=== PATIENT | male | born 1990 | race Two or more races ===

== ENCOUNTER 2024-04-10 09:57 | Inpatient (IN) | payer BC, OTHER ==
[~2024-04-10] VITALS: Ht 167.6 cm; Wt 80.2 kg
[2024-04-10] MEDS: ACETAMINOPHEN 500 MG TAB PO ONE (10:12)
[2024-04-10 10:49] VITALS: PULSE 131; RESP 21; O2SAT 94
--- NOTE | 2024-04-10 11:04 | ED.PDOC ---
GI ASSESSMENT HPI Comments 34y M who presents to the ED for chief complaint of abdominal pain. Pt states he has been having abdominal pain, nausea, vomiting, fever, chills and body aches for the past 4 days. Pt states he went to urgent care this AM and states he after pt vitals were checked, pt had fever of 103.1 F and was referred to the ED for further evaluation. Pt now in ED, has temp of 103.1 F and heart rate in the 140's. Pt otherwise denies shortness of breath,chest pain, headache, dizziness, dysuria, hematuria, or hematemesis. Pt denies any recent sick contacts. Pt denies any past medical history and use of any medications to help ease her symptoms. Pt otherwise denies any other symptoms at this time. Chief Complaint: Abdominal Pain Time Seen by MD: 11:00 Reviewed Notes: Allergies Allergies: Coded Allergies: NO KNOWN ALLERGIES (Unverified , 04/10/24) Information Source: Patient Mode of Arrival: Wheelchair Brought in by: self Past Medical History PAST MEDICAL HISTORY: Denies Surgical History: Denies all surgeries Family History Family History: Unknown Social History Smoker: Non-Smoker Alcohol: Occasionally Drugs: Denies Drug Use Lives In: Home Constitutional: reports: chills, fever; denies: diaphoresis, fatigue, malaise, sweats, weakness, others EENTM: denies: blurred vision, double vision, ear bleeding, ear discharge, ear drainage, ear pain, ear ringing, eye pain, eye redness, hearing loss, mouth pain, mouth swelling, nasal discharge, nose bleeding, nose congestion, nose pain, photophobia, tearing, throat pain, throat swelling, voice changes, others Respiratory: denies: cough, hemoptysis, orthopnea, SOB at rest, shortness of breath, SOB with excertion, stridor, wheezing, others Cardiovascular: denies: chest pain, dizzy spells, diaphoresis, Dyspnea on exertion, edema, irregular heart beat, left arm pain, lightheadedness, palpitations, PND, syncope, others Gastrointestinal: reports: abdominal pain, diarrhea, nausea, vomiting; denies: abdomen distended, blood streaked bowels, constipated, dysphagia, difficulty swallowing, hematemesis, melena, poor appetite, poor fluid intake, rectal bleeding, rectal pain, others Genitourinary: denies: burning, dysuria, flank pain, frequency, hematuria, incontinence, penile discharge, penile sore, pain, testicle pain, testicle swelling, urgency, others Neurological: denies: dizziness, fainting, headache, left sided numbness, left sided weakness, numbness, paresthesia, pre-existing deficit, right sided numbness, right sided weakness, seizure, speech problems, tingling, tremors, weakness, others Musculoskeletal: denies: back pain, gout, joint pain, joint swelling, muscle pain, muscle stiffness, neck pain, others Integumetry: denies: bruises, change in color, change in hair/nails, dryness, laceration, lesions, lumps, rash, wounds, others Allergic/Immunocompromised: denies: Difficulty Healing, Frequent Infections, Hives, Itching, others Hematologic/Lymphatic: denies: anemia, blood clots, easy bleeding, easy bruising, swollen glands, others Endocrine: denies: excessive hunger, excessive sweating, excessive thirst, excessive urination, flushing, intolerance to cold, intolerance to heat, unexplained weight gain, unexplained weight loss, others Psychiatric: denies: anxiety, bipolar disorder, depression, hopeless, panic disorder, schizophrenia, sleepless, suicidal, others All Other Systems: Reviewed and Negative Physical Exam General Appearance: Moderate Distress HEENT: Normal ENT Inspection, PERRL/EOMI, Pharyngeal Erythema Neck: Full Range of Motion, Lymphadenopathy (R), Lymphadenopathy (L), Non- Tender, Normal, Normal Inspection Respiratory: Chest Non-Tender, Lungs Clear, No Accessory Muscle Use, No Respiratory Distress, Normal Breath Sounds Cardiovascular: No Edema, No JVD, No Murmur, No Gallop, Normal Peripheral Pulses, Regular Rate/Rhythm Breast Exam: Normal Gastrointestinal: Epigastric, No Organomegaly, No Pulsatile Mass, Normal Bowel Sounds, Tenderness Genitalia: Deferred Pelvic: Deferred Rectal: Deferred Extremities: No calf tenderness, Normal capillary refill, Normal inspection, Normal range of motion, Non-tender, No pedal edema Neurologic: Alert, staff genetic counselor II-XII nml as Tested, No Motor Deficits, Normal Affect, Normal Mood, No Sensory Deficits Cerebellar Function: Normal Reflexes: Normal Skin: Dry, Normal Color, Warm Peripheral Pulses: 1+ carotid (R), 1+ carotid (L) Lymphatic: Inguinal Node Tender (L) EKG EKG : Pulse Rate (adult): 121 [place]: RAD Cardiac Rhythm: ST, PVC's Was a procedure done? Was a procedure done?: No GI differential Dx Differential Diagnosis: Cholecystitis, Diverticular disease, Gastritis/PUD, Gastroenteritis, Inflammatory BD, Ischemic Bowel, Pancreatitis, UTI, Dehydration, Diabetes/ DKA, Drug toxicity, Electrolyte Imbalance, Food Poisoning, Bacterial, Viral, Anemia, Stress Ulcer Other Differential Diagnosis sepsis, viral syndrome, influenza A and B, pneumonia, COVID X-Ray, Labs, Meds, VS Vital Signs Date Time Temp Pulse Resp B/P (MAP) Pulse Ox O2 Delivery O2 Flow Rate FiO2 04/10/24 13:00 99.6 114 23 114/78 (90) 97 99.6 04/10/24 11:41 121 04/10/24 11:25 121 04/10/24 11:12 101.9 04/10/24 10:49 101.9 131 21 104/58 (73) 93 101.9 04/10/24 10:49 131 21 94 Room Air* 0 21 04/10/24 10:12 103.1 04/10/24 10:07 103.1 141 16 114/70 (85) 100 Lab Test 04/10/24 12:38 04/10/24 11:24 04/10/24 11:03 Range/Units Urine Color Yellow Yellow Urine Clarity Clear Clear Urine pH 5.5 5.0-9.0 Urine Specific [place] 1.022 1.001-1.035 Urine Protein 1+ H Negative Urine Ketones Negative Negative Urine Blood Trace H Negative /uL Urine Nitrite Negative Negative Urine Bilirubin Negative Negative Urine Urobilinogen Normal Negative mg/dL Urine Leukocyte Esterase Negative Negative /uL Urine RBC 2 0 - 3 /hpf Urine WBC 9 0 - 3 /hpf Urine Squamous Epithelial Cells None seen <5 /hpf Urine Bacteria None seen None Seen /hpf Urine Hyaline Casts Few 0 - 2 /lpf Urine Glucose Normal Normal mg/dL Influenza Type A Antigen Negative Negative Influenza Type B Antigen Negative Negative SARS-CoV-2 Antigen (Rapid) Negative NEGATIVE Group A Streptococcus Rapid Positive White Blood Count 20.7 H 4.4-10.8 10^3/uL Red Blood Count 5.33 4.5-5.90 10^6/uL Hemoglobin 15.6 13.5-17.5 g/dL Hematocrit 43.6 41.0-53.0 % Mean Corpuscular Volume 81.9 80.0-100.0 fL Mean Corpuscular Hemoglobin 29.3 28.0-32.0 pg Mean Corpuscular Hemoglobin Concent 35.8 32.0-36.0 g/dL Red Cell Distribution Width 13.0 11.8-14.3 % Platelet Count 242 140-450 10^3/uL Mean Platelet Volume 7.7 6.9-10.8 fL Neutrophils (%) (Auto) 37.0-80.0 % Lymphocytes (%) (Auto) 10.0-50.0 % Monocytes (%) (Auto) 0.0-12.0 % Basophils (%) (Auto) 0.0-2.0 % Neutrophils # (Auto) 1.6-8.6 10 ^3/uL Lymphocytes # (Auto) 0.4-5.4 10 ^3/uL Monocytes # (Auto) 0-1.3 10 ^3/uL Differential Total Cells Counted 100.0 100 Neutrophils % (Manual) 72 37.0-80.0 Band Neutrophils % (Manual) 9 Lymphocytes % (Manual) 9 L 10.0-50.0 Monocytes % (Manual) 8 0-12 Eosinophils % (Manual) 2 0-7 Basophils % (Manual) 0 0.0-2.0 Metamyelocytes % (manual) 0 Myelocytes % (Manual) 0 Promyelocytes % (Manual) 0 Blast Cells % (Manual) 0 Reactive Lymphocytes 0 Platelet Estimate Adequate Sodium Level 133 L 136-145 mmol/L Potassium Level 2.9 L 3.5-5.1 mmol/L Chloride Level 103 98-107 mmol/L Carbon Dioxide Level 20 20-31 mmol/L Anion Gap 10 5-15 Blood Urea Nitrogen 12 9-23 mg/dL Creatinine 1.63 H 0.700-1.30 mg/dL Glomerular Filtration Rate Calc 56 >90 mL/min BUN/Creatinine Ratio 7.4 L 10.0-20.0 Serum Glucose 143 H 74-106 mg/dL Calcium Level 9.0 8.7-10.4 mg/dL Magnesium Level 1.5 L 1.6-2.6 mg/dL Total Bilirubin 2.5 H 0.2-1.0 mg/dL Aspartate Amino Transferase (AST) 146 H 13-40 U/L Alanine Aminotransferase (ALT) 216 H 7-40 U/L Alkaline Phosphatase 111 46-116 U/L Total Protein 7.5 5.7-8.2 g/dL Albumin 4.5 3.2-4.8 g/dL Lipase 28 12-53 U/L Current Medications Medications (Trade) Dose Ordered Sig/Jese Route Start Time Stop Time Status Last Admin Acetaminophen (Tylenol Tablet) 1,000 mg ONCE ONCE PO 04/10/24 10:15 04/10/24 10:16 DC 04/10/24 10:12 Sodium Chloride 1,000 ml @ 1,000 mls/hr Q1H ONCE IVB 04/10/24 11:00 04/10/24 11:59 DC 04/10/24 11:51 Ceftriaxone Sodium 50 ml @ 100 mls/hr ONCE ONCE IV 04/10/24 15:15 04/10/24 15:44 DC 04/10/24 15:47 Potassium Bicarbonate (Klor-Con/Ef) 50 meq ONCE ONCE PO 04/10/24 15:30 04/10/24 15:31 DC 04/10/24 15:54 [place] [id number] Ph: [phone] DIAGNOSTIC IMAGING Diagnostic Imaging Report : [id number] Signed PATIENT: BIB CHANACCT: [id number] UNIT: [id number] : 1990 LOC: ER ROOM / BED: / AGE / SEX: 34 / M ADM STATUS: REG ER SERVICE 1048 ORDERING PHYSICIAN: BELÉN UMANA MD PROCEDURE(s): CXR2 - CHEST TWO VIEWS ROUTINE REASON: High fever ORDER NUMBER(s): [id number], ACCESSION NUMBER(s): [id number] CHEST TWO VIEWS ROUTINE CLINICAL HISTORY: High fever COMPARISON: None TECHNIQUE: Frontal and lateral view of the chest was obtained FINDINGS: Lines and Tubes: None Lungs: No focal consolidation. Bronchovascular crowding due to low lung volumes. Pleura: No effusion. No pneumothorax. Cardiomediastinal contours: Unremarkable Bones: No acute osseous abnormality. IMPRESSION: Bronchovascular crowding due to low lung volumes. Otherwise, no evidence for acute cardiopulmonary disease. ATED BY: REVA FIGUEROA DO DICTATED DATE/TIME: 04/10/24 1350 SIGNED BY: REVA FIGUEROA DO SIGNED DATE/TIME: 04/10/24 1350 CC: [place] [address] Ph: [phone] DIAGNOSTIC IMAGING Diagnostic Imaging Report : [id number] Signed PATIENT: BIB CHANACCT: [id number] UNIT: [id number] : 1990 LOC: ER ROOM / BED: / AGE / SEX: 34 / M ADM STATUS: REG ER SERVICE 1048 ORDERING PHYSICIAN: BELÉN UMANA MD PROCEDURE(s): ABPLIV - CT AB PEL WITH IV CON ONLY REASON: Abdominal pain and high fever with nausea vomiting and diarr ORDER NUMBER(s): [id number], ACCESSION NUMBER(s): [id number] Exam: CT CT AB PEL WITH IV CON ONLY History: Abdominal pain and high fever with nausea vomiting and diarr Comparison Study: None available at time of dictation. Contrast: Type of contrast: Not submitted Contrast injected: Not submitted Contrast wasted: 0 TECHNIQUE: A digital artificial breeding technician image was obtained. During the uneventful, intravenous administration of contrast material, multislice data acquisition was obtained through the abdomen and pelvis. The data set was subsequently reconstructed into axial images. Images were reviewed on a work station using a combination of axial and multiplanar using a variety of window levels and settings. Radiation Dose Information: CT Dose: CTDI volume is 10.68 mGy. Dose-length product is 515.95 mGy*cm FINDINGS: Lung Bases: No acute or significant lung base finding. Normal heart size. No pleural or pericardial effusion. Liver: The liver is normal in size. No focal lesions. Normal hepatic vascular enhancement. Gallbladder and Biliary Tree: Punctate gallstones. No biliary ductal dilatation. Spleen: The spleen is unremarkable. Pancreas: The pancreas is normal in appearance without focal lesions or abnormal enhancement. Adrenal Glands: Unremarkable Kidneys: Kidneys demonstrate normal symmetric enhancement without focal lesions, calculi or hydronephrosis. Bladder: Unremarkable Bowel: The stomach is grossly normal in appearance. Small bowel is normal in caliber. Diffuse wall thickening of the ascending colon, descending and sigmoid colon. Normal appendix. Intraperitoneal cavity: There is no fluid collection. There is moderate fat stranding in the left hemipelvis extending into the left groin. No fluid collection. Lymphadenopathy: Increased number of left inguinal lymph nodes which are enlarged. Abdominal Wall and Mesentery: Unremarkable. Vasculature: The visualized abdominal aorta is normal in size and caliber. Abdominal and pelvic vessels demonstrate normal enhancement. No vascular filling defect noted. Pelvic Organs: Enlarged prostate. Musculoskeletal: No aggressive focal bony lesions, acute fractures or disl ocation. Soft tissues: Unremarkable. IMPRESSION: 1. Fat stranding in the left hemipelvis, extending into the left groin. Findings are suspicious for infectious or inflammatory etiology but the source is unclear. Adjacent colon appears to be unaffected . Additionally, there is left inguinal lymphadenopathy, which may be reactive. Consider left lower extremity venous doppler ultrasound to exclude thrombus. 2. Mild diffuse wall thickening of the entire colon which may represent colitis. All CT scans at this medical facility are performed using dose modulation techniques as appropriate to a performed exam including the following: Automated exposure control was utilized; adjustment of the MA and/or KV according to patient size; and use of iterative reconstruction technique. ATED BY: JAZZ HARTMAN MD DICTATED DATE/TIME: 04/10/24 1309 SIGNED BY: JAZZ HARTMAN MD SIGNED DATE/TIME: 04/10/24 1309 CC: X-Ray, Labs, Meds, VS Comment Course in the emergency department eventful patient came in with a high fever 104 and heart rate of 140 with nausea vomiting and diarrhea Chest x-ray is normal EKG shows sinus tachycardia at 1:21 a.m. with PVCs and right axis deviation CBC 35945 with 72% neutrophils and normal H&H Urine is negative CMP potassium at 2.9 GFR 56 with a blood sugar of 143 Magnesium 1.5 Liver enzymes elevated Lipase 28 Strep pharyngitis positive Influenza a and B negative COVID-19 negative left extremity DVT negative CT abdomen and pelvis shows fat stranding left hemiparesis with extended to the left groin and colitis per Radiology suggestion of ultrasound left extremity Patient will be admitted for further care Time of 1ST Reevaluation: 11:30 Reevaluation 1ST: Unchanged Time of 2ND Reevaluation: 15:14 Reevaluation 2ND: Improved Patient Education/Counseling: Diagnosis, Treatment Family Education/Counseling: No Family Present Departure 1 Departure Time of Disposition: 15:19 Impression: Primary Impression: Febrile illness, acute Additional Impressions: Non-specific colitis Sepsis Strep pharyngitis Hypokalemia Diabetic nephropathy associated with diabetes mellitus due to underlying condition Hypomagnesemia Elevated liver enzymes Ruled Out: Acute pancreatitis, Diverticulitis of intestine, Appendicitis, Urinary tract infection Disposition: ADMITTED INPATIENT Condition: Serious Critical Care Note Critical Care Time?: Yes (30 min-critical care time only) Stability Stability form required: Yes Unstable for transfer: Telemetry monitoring (Telemetry monitoring required), Requires medication (Requires Med for stabilization) Heart Score Heart Score: Heart Score Response (Comments) Value History Moderate Suspicious 1 EKG Repolarization Disturb 1 Age <45 0 Risk Factors No known risk factors 0 Troponin N/A 0 Total 2 I personally scribed for BELÉN UMANA MD ([email or web address]) on 04/10/24 at 11:04. Electronically submitted by Marely Galindo ([facility] [place]). I personally scribed for EBLÉN UMANA MD ([email or web address]) on 04/10/24 at 15:08. Electronically submitted by Marely Galindo ([facility] [place]). BELÉN UMANA MD Apr 10, 2024 11:04
[2024-04-10 11:14] LABS: Hematocrit 43.6 % (41.0-53.0); Hemoglobin 15.6 g/dL (13.5-17.5); Mean Corpuscular Hemoglobin 29.3 pg (28.0-32.0); Mean Corpuscular Hgb Conc. 35.8 g/dL (32.0-36.0); Mean Corpuscular Volume 81.9 fL (80.0-100.0); Platelet Count (auto) 242 10^3/uL (140-450); Red Blood Cells 5.33 10^6/uL (4.5-5.90); White Blood Cell 20.7 10^3/uL (4.4-10.8)
[2024-04-10 11:20] LABS: Basophils % (manual) 0 (0.0-2.0); Blast Cells 0; Metamyelocytes % 0; Myelocytes % 0; Promyelocytes % 0; Reactive Lymphocytes 0
[2024-04-10 11:32] LABS: Alanine Aminotransferase 216 U/L (7-40); Albumin 4.5 g/dL (3.2-4.8); Alkaline Phosphatase 111 U/L (46-116); Anion Gap 10 (5-15); Aspartate Aminotransferase 146 U/L (13-40); BUN/Creatinine Ratio 7.4 (10.0-20.0); Bilirubin, Total 2.5 mg/dL (0.2-1.0); Blood Urea Nitrogen 12 mg/dL (9-23); Carbon Dioxide 20 mmol/L (20-31); Chloride 103 mmol/L (98-107); Glucose 143 mg/dL (74-106); Lipase 28 U/L (12-53); Magnesium 1.5 mg/dL (1.6-2.6); Potassium 2.9 mmol/L (3.5-5.1); Sodium 133 mmol/L (136-145); Total Protein 7.5 g/dL (5.7-8.2)
[2024-04-10 11:48] LABS: Rapid Strep A Screen-Throat Positive
[2024-04-10] MEDS: SODIUM CHLORIDE 0.9% 1,000 ML IVB ONE (11:51)
[2024-04-10 12:00] LABS: Rapid Influenza A Negative (Negative); Rapid Influenza B Negative (Negative)
[2024-04-10 12:01] LABS: COVID19 ANTIGEN SOFIA FIA NEGATIVE (NEGATIVE)
[2024-04-10] MEDS: IOHEXOL 300 MG/ML 100ML BOTTLE IJ ONE (12:14)
[2024-04-10 12:19] LABS: Band Neutrophils % (manual) 9; Eosinophils % (manual) 2 (0-7); Lymphocytes % (manual) 9 (10.0-50.0); Monocytes % (manual) 8 (0-12); Platelet Estimate Adequate
[2024-04-10 12:58] LABS: Urine Bacteria None Seen /hpf (None Seen)
--- NOTE | 2024-04-10 13:11 | DVH ---
Exam: CT CT AB PEL WITH IV CON ONLY History: Abdominal pain and high fever with nausea vomiting and diarr Comparison Study: None available at time of dictation. Contrast: Type of contrast: Not submitted Contrast injected: Not submitted Contrast wasted: 0 TECHNIQUE: A digital preschool substitute teacher image was obtained. During the uneventful, intravenous administration of c ontrast material, multislice data acquisition was obtained through the abdomen and pelvis. The data s et was subsequently reconstructed into axial images. Images were reviewed on a work station using a c ombination of axial and multiplanar using a variety of window levels and settings. Radiation Dose Information: CT Dose: CTDI volume is 10.68 mGy. Dose-length product is 515.95 mGy*cm FINDINGS: Lung Bases: No acute or significant lung base finding. Normal heart size. No pleural or pericardial effusion. Liver: The liver is normal in size. No focal lesions. Normal hepatic vascular enhancement. Gallbladder and Biliary Tree: Punctate gallstones. No biliary ductal dilatation. Spleen: The spleen is unremarkable. Pancreas: The pancreas is normal in appearance without focal lesions or abnormal enhancement. Adrenal Glands: Unremarkable Kidneys: Kidneys demonstrate normal symmetric enhancement without focal lesions, calculi or hydroneph rosis. Bladder: Unremarkable Bowel: The stomach is grossly normal in appearance. Small bowel is normal in caliber. Diffuse wall t hickening of the ascending colon, descending and sigmoid colon. Normal appendix. Intraperitoneal cavity: There is no fluid collection. There is moderate fat stranding in the left hem ipelvis extending into the left groin. No fluid collection. Lymphadenopathy: Increased number of left inguinal lymph nodes which are enlarged. Abdominal Wall and Mesentery: Unremarkable. Vasculature: The visualized abdominal aorta is normal in size and caliber. Abdominal and pelvic vess els demonstrate normal enhancement. No vascular filling defect noted. Pelvic Organs: Enlarged prostate. Musculoskeletal: No aggressive focal bony lesions, acute fractures or dislocation. Soft tissues: Unremarkable. IMPRESSION: 1. Fat stranding in the left hemipelvis, extending into the left groin. Findings are suspicious for i nfectious or inflammatory etiology but the source is unclear. Adjacent colon appears to be unaffected . Additionally, there is left inguinal lymphadenopathy, which may be reactive. Consider left lower e xtremity venous doppler ultrasound to exclude thrombus. 2. Mild diffuse wall thickening of the entire colon which may represent colitis. All CT scans at this medical facility are performed using dose modulation techniques as appropriate t o a performed exam including the following: Automated exposure control was utilized; adjustment of th e MA and/or KV according to patient size; and use of iterative reconstruction technique.
[2024-04-10 13:38] LABS: Urine Blood TRACE /uL (Negative); Urine Clarity Clear (Clear); Urine Color Yellow (Yellow); Urine Hyaline Cast FEW /lpf (0 - 2); Urine Protein, UAD 1+ (Negative); Urine Specific Gravity 1.022 (1.001-1.035); Urine Urobilinogen Normal (Negative); Urine WBC 9 /hpf (0 - 3); Urine pH 5.5 (5.0-9.0)
--- NOTE | 2024-04-10 13:52 | DVH ---
XY CHEST TWO VIEWS ROUTINE CLINICAL HISTORY: High fever COMPARISON: None TECHNIQUE: Frontal and lateral view of the chest was obtained FINDINGS: Lines and Tubes: None Lungs: No focal consolidation. Bronchovascular crowding due to low lung volumes. Pleura: No effusion. No pneumothorax. Cardiomediastinal contours: Unremarkable Bones: No acute osseous abnormality. IMPRESSION: Bronchovascular crowding due to low lung volumes. Otherwise, no evidence for acute cardiopulmonary d isease.
[2024-04-10] MEDS: methylPREDNISolone SOD SUCC 40 MG/ML VL ONE (14:38)
[2024-04-10] MEDS: cefTRIAXone 1GM/50ML D5W 50 ML IV ONE ×2 (15:47→16:15)
--- NOTE | 2024-04-10 15:49 | DVH ---
Procedure: US LT Lower DVT Study Date and Requested Time: 04/10/2024 03:25 PM History: LLE PAIN/ SWELLING Comparison: None Technique: Multiple high resolution stovall-scale images with and without compression obtained of the le ft lower extremity veins, including the common femoral vein, deep femoral vein, proximal mid and dist al superficial femoral vein, and popliteal vein. Additional limited images of the greater saphenous v ein also obtained. Augmentation performed as indicated. Color and spectral doppler flow images obtain ed as indicated. Findings: No visible intraluminal venous thrombus. No evidence of incompressibility or abnormal color or spectr al Doppler flow visualized in the left lower extremity veins including, the common femoral vein, deep femoral vein, proximal mid and distal superficial femoral vein, and popliteal vein. Greater saphenou s vein grossly unremarkable. Subcentimeter left inguinal lymph node measuring up to 0.7 cm. Impression: No sonographic evidence of left lower extremity deep venous thrombosis.
[2024-04-10] MEDS: POTASSIUM EFFERVESENT TAB 25 MEQ PO ONE (15:54)
--- NOTE | 2024-04-10 16:12 | DVHHP2 ---
History of Present Illness Reason for Visit: Abdominal pain nausea and vomiting fever body ache History of Present Illness 34-year-old male no past medical history no surgical history chief complaint p atient states he got home he started feeling dizziness and cold and chills. He states things got worse today he was he went to the urgent care and they found him to be tachycardic and had a fever T-max 103.1 so they sent him to the ER for evaluation. Patient states he has been vomiting but there was no blood he stated he vomited 4 times today he did not does state he also had some diarrhea but there was no blood patient denies any sick contacts at home he denies any trouble swallowing no throat pain he does complain of dizziness no chest pain no shortness with the breath when evaluating patient's labs and imaging looks like magnesium was given potassium ceftriaxone Solu-Medrol normal saline Tylenol white count was 20.0 CT scan abdomen pelvis showed a questionable thrombus in his left lower groin area which ultrasound was completed which was negative for DVT sodium was 133 potassium was 2.9 Mag was 1.5 total bili was 2.5 AST was 149 ALT was 216 creatinine was 1.63 glucose was 143 strep was positive COVID influenza was unremarkable CT scan abdomen pelvis shows colitis but no abscess or perforation. Chest x-ray unremarkable With these findings we will admit patient to deal you IV hydration and antibiotics for acute sepsis Past Medical History Denies any medical history Past Surgical History Denies any surgical history Family History Reviewed, non-contributory to the management of this case. Past Social History Occasionally drank but denies any drug or alcohol use Review of Systems Constitutional: No: Fever, Chills, Sweats, Weakness, Malaise, Other Eyes: No: Pain, Vision change, Conjunctivae inflammation, Eyelid inflammation, Other, Redness ENT: No: Ear pain, Ear discharge, Nose pain, Nose discharge, Nose congestion, M outh pain, Mouth swelling, Throat pain, Throat swelling, Other Respiratory: No: Cough, Dry, Shortness of breath, SOB with excertion, Wheezing, Hemoptysis, Pleuritic Pain, Sputum, Wheezing, Other Cardiovascular: No: Chest Pain, Palpitations, Orthopnea, Paroxysmal Noc. Dyspnea, Edema, Lt Headedness, Other Gastrointestinal: Nausea, Vomiting, Abdominal Pain, Diarrhea; No: Constipation, Melena, Hematochezia, Other Genitourinary: No Dysuria, No Frequency, No Incontinence, No Hematuria, No R etention, No Other Musculoskeletal: No: other, neck pain, shoulder pain, arm pain, back pain, hand pain, leg pain, foot pain Skin: No: Rash, Lesions, Jaundice, Bruising, Other Neurological: No: Weakness, Numbness, Incoordination, Change in speech, Confusion, Seizures, Other Allergies: Coded Allergies: NO KNOWN ALLERGIES (Unverified , 04/10/24) Medications Current Medications Medications Dose Ordered Sig/Jese Route Start Time Stop Time Status Last Admin Dose Admin Magnesium Sulfate/ Dextrose 100 ml @ 100 mls/hr Q1H IV 04/10/24 15:30 04/10/24 17:29 Exam Vital Signs Vital Signs Date Time Temp Pulse Resp B/P (MAP) Pulse Ox O2 Delivery O2 Flow Rate FiO2 04/10/24 13:00 99.6 114 23 114/78 (90) 97 99.6 04/10/24 10:49 Room Air* 0 21 General Appearance: Alert, Oriented X3, Cooperative, No acute distress HEENT: Mucous membr. moist/pink, Other (no erythema no exudates airway patent no drooling able to handle secretions) Respiratory: Clear to auscultation, Normal air movement Cardiovascular: Regular rate, Normal S1, Normal S2, No murmurs, Other (Tachycardia) Abdominal: Normal bowel sounds, Soft, No tenderness, No hepatospenomegaly, No masses Extremities: No clubbing, No cyanosis, No edema, Normal pulses, No tenderness/swelling Skin: No rashes, No breakdown, No significant lesion Neuro: Other (Neuro nonfocal) Psych/Mental Status: Mental status NL Labs/Xrays Ultrasound negative for DVT CT scan of the abdomen pelvis shows colitis no abscess or perforation Strept culture was positive I reviewed labs, imaging CT scan abdomen pelvis, EKG and all diagnostic studies on this patient from ED records and the medical chart Labs Test 04/10/24 12:38 04/10/24 11:24 04/10/24 11:03 Range/Units Urine Color Yellow Yellow Urine Clarity Clear Clear Urine pH 5.5 5.0-9.0 Urine Specific [place] 1.022 1.001-1.035 Urine Protein 1+ H Negative Urine Ketones Negative Negative Urine Blood Trace H Negative /uL Urine Nitrite Negative Negative Urine Bilirubin Negative Negative Urine Urobilinogen Normal Negative mg/dL Urine Leukocyte Esterase Negative Negative /uL Urine RBC 2 0 - 3 /hpf Urine WBC 9 0 - 3 /hpf Urine Squamous Epithelial Cells None seen <5 /hpf Urine Bacteria None seen None Seen /hpf Urine Hyaline Casts Few 0 - 2 /lpf Urine Glucose Normal Normal mg/dL Influenza Type A Antigen Negative Negative Influenza Type B Antigen Negative Negative SARS-CoV-2 Antigen (Rapid) Negative NEGATIVE Group A Streptococcus Rapid Positive White Blood Count 20.7 H 4.4-10.8 10^3/uL Red Blood Count 5.33 4.5-5.90 10^6/uL Hemoglobin 15.6 13.5-17.5 g/dL Hematocrit 43.6 41.0-53.0 % Mean Corpuscular Volume 81.9 80.0-100.0 fL Mean Corpuscular Hemoglobin 29.3 28.0-32.0 pg Mean Corpuscular Hemoglobin Concent 35.8 32.0-36.0 g/dL Red Cell Distribution Width 13.0 11.8-14.3 % Platelet Count 242 140-450 10^3/uL Mean Platelet Volume 7.7 6.9-10.8 fL Neutrophils (%) (Auto) 37.0-80.0 % Lymphocytes (%) (Auto) 10.0-50.0 % Monocytes (%) (Auto) 0.0-12.0 % Basophils (%) (Auto) 0.0-2.0 % Neutrophils # (Auto) 1.6-8.6 10 ^3/uL Lymphocytes # (Auto) 0.4-5.4 10 ^3/uL Monocytes # (Auto) 0-1.3 10 ^3/uL Differential Total Cells Counted 100.0 100 Neutrophils % (Manual) 72 37.0-80.0 Band Neutrophils % (Manual) 9 Lymphocytes % (Manual) 9 L 10.0-50.0 Monocytes % (Manual) 8 0-12 Eosinophils % (Manual) 2 0-7 Basophils % (Manual) 0 0.0-2.0 Metamyelocytes % (manual) 0 Myelocytes % (Manual) 0 Promyelocytes % (Manual) 0 Blast Cells % (Manual) 0 Reactive Lymphocytes 0 Platelet Estimate Adequate Sodium Level 133 L 136-145 mmol/L Potassium Level 2.9 L 3.5-5.1 mmol/L Chloride Level 103 98-107 mmol/L Carbon Dioxide Level 20 20-31 mmol/L Anion Gap 10 5-15 Blood Urea Nitrogen 12 9-23 mg/dL Creatinine 1.63 H 0.700-1.30 mg/dL Glomerular Filtration Rate Calc 56 >90 mL/min BUN/Creatinine Ratio 7.4 L 10.0-20.0 Serum Glucose 143 H 74-106 mg/dL Calcium Level 9.0 8.7-10.4 mg/dL Magnesium Level 1.5 L 1.6-2.6 mg/dL Total Bilirubin 2.5 H 0.2-1.0 mg/dL Aspartate Amino Transferase (AST) 146 H 13-40 U/L Alanine Aminotransferase (ALT) 216 H 7-40 U/L Alkaline Phosphatase 111 46-116 U/L Total Protein 7.5 5.7-8.2 g/dL Albumin 4.5 3.2-4.8 g/dL Lipase 28 12-53 U/L Assessment/Plan Assessment/Plan acute sepsis likely from colitis and strept infection found on ct scan and throat culture ordered vanco and zosyn witb acute sepsis ordered blood cultures ordered ivf fu lactic ordered ivf bolus x3 sepsis protocol covid and influenza negative Chest x-ray unremarkable acute colitis without abscess found on ct scan abd pelvis ordered vanco and zosyn since pt had high fever 103.1 clr liquid diet for now ivf ordered morphine as needed for pain acute strept infection found with culture ordered vanco and zosyn for now warm salt water garles can consider spray to help with pain ordered tylenol prn fever liquids as can tolerate acute leukocytosis likely from colitis and strept infection ordered blood cultures ordered lactic fu results ordered vanco and zosyn acute hypokalemia repleted k ordered mag and phos fu results acute luis alfredo likely dehydration ordered ivf for now consider renal consult if no improvement gentle motrin in setting of luis alfredo acute transaminitis ordered abd us fu results ordered hepatitis panel fu results if no improvement consider gi consult avoid liver toxic drugs gentle tylenol in setting of acute transaminitis acute tachycardia likely from fever iv hydration ordered tylenol as needed for fever can use cooling measures and cooling blanket acute fever likely from colitis and strept infection ordered blood culture fu results ordered tylenol prn fever acute hypomagnesium replete mag level ordered phos fu results fen/ppx no gi ppx since no hx of gerds or gi bleed scd ivf clr liquid diet plan admit to [facility] Plan discussed with: Patient Date of Service: Apr 10, 2024 Billing Provider: EZRA JEAN BAPTISTE DNP Common Visit Codes: [id number] CARE 30-74 MIN (Total critical care time: Approximately 45 minutes This critical care time included obtaining a history; examining the patient; pulse oximetry; ordering and review of studies; arranging urgent treatment with development of a management plan; evaluation of patient's response to treatment; frequent reassessment; and, discussions with other providers.) EZRA JEAN BAPTISTE DNP Apr 10, 2024 16:12
[2024-04-10] MEDS ORDERED: DOCUSATE SOD 100 MG CAP PO PRN (16:15)
[2024-04-10] MEDS ORDERED: ONDANSETRON HCL 4 MG/2 ML VIAL IV PRN (16:15)
[2024-04-10] MEDS: MAGNESIUM SULFATE 1GM/100ML 100 ML IV SCH (16:18)
[2024-04-10] MEDS: ONDANSETRON HCL 4 MG/2 ML VIAL IV ONE (16:23)
[2024-04-10 16:33] LABS: Albumin 4.3 g/dL (3.2-4.8); Bilirubin, Direct 1.2 mg/dL (<0.3); Bilirubin, Total 2.3 mg/dL (0.2-1.0); Phosphorus 1.7 mg/dL (2.4-5.1); Total Protein 7.6 g/dL (5.7-8.2)
[2024-04-10 17:05] LABS: Lactic Acid w/Reflex 2.4 mmol/L (0.4-2.0)
--- NOTE | 2024-04-10 17:06 | DVH ---
INDICATION: Pain. TECHNIQUE: Multiple real-time sonographic images of the abdomen were obtained. COMPARISON: None FINDINGS: The liver demonstrates increased parenchymal echogenicity consistent with steatosis.. The l iver measures 15.8 cm. No intrahepatic biliary ductal dilatation is noted. The gallbladder wall measures 0.27 cm and is unremarkable. No gallstones or sludge is seen. The co mmon duct measures 0.38 cm and is unremarkable. No pericholecystic fluid is noted. Negative ultraso und Abel's sign is elicited. The right kidney measures 10.7 cm. No hydronephrosis. The pancreas is not well visualized due to obscuration from bowel gas. IMPRESSION: 1. Liver measures 15.8 cm in length with increased echogenicity of the hepatic parenchyma suggesting steatosis.
[2024-04-10] MEDS: SODIUM CHLORIDE 0.9% 1,000 ML IV SCH (17:13)
[2024-04-10] MEDS: SODIUM CHLORIDE 0.9% 2,000 ML IV ONE (17:24)
[2024-04-10] MEDS ORDERED: SODIUM CHLORIDE 0.9% 1,000 ML IV ONE (17:30)
[2024-04-10] MEDS ORDERED: NITROGLYCERIN 0.4 MG SL TAB SL PRN (17:30)
[2024-04-10] MEDS: metroNIDAZOLE 500MG/100ML 100 ML IV ONE (17:35)
[2024-04-10] MEDS: IBUPROFEN 400 MG TAB PO ONE (17:55)
[2024-04-10] MEDS: ACETAMINOPHEN 325 MG TAB PO ONE (17:55)
[2024-04-10] MEDS ORDERED: VANCOMYCIN PER PHARMACY 0 MG IV SCH (18:00)
[2024-04-10] MEDS ORDERED: PIPERACILLIN-TAZOB 3.375GM 100 ML IV ONE (18:00)
[2024-04-10] MEDS: PIPERACILLIN-TAZOB 3.375GM 100 ML IV SCH (18:52)
--- NOTE | 2024-04-10 18:54 | ECG ---
[facility] Test Date: 2024-04-10 Test Time: 11:22:17 Pat Name: BIB MAGANA Department: ED Room: 0263D Gender: M [employer] Gl[employer] Operator: ISMAEL : 1990 Requested By: BELÉN UMANA Order Number: [id number] Reading MD: Bronson Hughes Measurements Intervals [place] Rate: 121 P: 74 CA: 142 QRS: 100 QRSD: 82 T: 0 QT: 300 QTc: 426 Interpretive Statements Sinus tachycardia Ventricular premature complex Aberrant conduction of SV complex(es) Right axis deviation Borderline T abnormalities, inferior leads Electronically Signed On 04-15-2024 10:12:56 PST by Bronson Hughes Please click the below link to view image of tracing.
[2024-04-10 19:58] VITALS: PULSE 111; RESP 22; O2SAT 99
[2024-04-10] MEDS ORDERED: metroNIDAZOLE 500MG/100ML 100 ML IV SCH (22:00)
[2024-04-10] MEDS: VANCOMYCIN 1GM/200ML PREMIX 200 ML IV SCH (22:06)
[2024-04-11] VITALS (35 sets, daily range): BP systolic 97–134; BP diastolic 59–86; PULSE 101–126; RESP 12–37; TEMP 99–102.4; O2SAT 88–98
[2024-04-11] MEDS: ACETAMINOPHEN 325 MG TAB PO PRN (02:26)
[2024-04-11 03:58] LABS: Basophils # (auto) 0 10 ^3/uL (0-0.2); Eosinophils # (auto) 0.5 10 ^3/uL (0-0.8); Eosinophils % (auto) 3.5 % (0.0-7.0); Hematocrit 38.7 % (41.0-53.0); Hemoglobin 13.4 g/dL (13.5-17.5); Lymphocytes # (auto) 0.3 10 ^3/uL (0.4-5.4); Lymphocytes % (auto) 1.7 % (10.0-50.0); Mean Corpuscular Hgb Conc. 34.6 g/dL (32.0-36.0); Mean Corpuscular Volume 83.7 fL (80.0-100.0); Monocytes # (auto) 0.5 10 ^3/uL (0-1.3); Monocytes % (auto) 3.2 % (0.0-12.0); Neutrophils # (auto) 13.7 10 ^3/uL (1.6-8.6); Neutrophils % (auto) 91.6 % (37.0-80.0); Platelet Count (auto) 201 10^3/uL (140-450); Red Blood Cells 4.63 10^6/uL (4.5-5.90); Red Cell Distribution Width 13.2 % (11.8-14.3)
[2024-04-11 04:18] LABS: Alanine Aminotransferase 182 U/L (7-40); Albumin 3.6 g/dL (3.2-4.8); Alkaline Phosphatase 104 U/L (46-116); Anion Gap 7 (5-15); Aspartate Aminotransferase 102 U/L (13-40); BUN/Creatinine Ratio 8.8 (10.0-20.0); Blood Urea Nitrogen 10 mg/dL (9-23); Carbon Dioxide 22 mmol/L (20-31); Chloride 109 mmol/L (98-107); Glucose 124 mg/dL (74-106); Sodium 138 mmol/L (136-145)
[2024-04-11 04:19] LABS: Bilirubin, Total 2.8 mg/dL (0.2-1.0)
[2024-04-11] MEDS: MORPHINE SULFATE INJ 2 MG/ml SYRG IV PRN (08:58)
[2024-04-11] MEDS ORDERED: cefTRIAXone 1GM/50ML D5W 50 ML IV SCH (09:00)
[2024-04-11] MEDS: MAGNESIUM SULFATE 1GM/100ML 100 ML IV SCH (09:09)
[2024-04-11 09:25] LABS: Thyroid Stimulating Hormone 1.55 uIU/mL (0.55-4.78)
[2024-04-11] MEDS: POTASSIUM CHLORIDE 60 MEQ, LIDOCAINE 1% (LOCAL ANESTH.) 6 ML in SODIUM CHL 0.9% 500 ML IV ONE (09:37)
[2024-04-11 09:47] LABS: Magnesium 2.2 mg/dL (1.6-2.6)
[2024-04-11 09:48] LABS: Phosphorus 1.6 mg/dL (2.4-5.1)
[2024-04-11] MEDS: NEUTRA-PHOS TABLET PO ONE (10:01)
[2024-04-11 10:09] LABS: INR 1.13 (0.9-1.15); Partial Thromboplastin Time 28.6 SEC (24.5-34.5); Prothrombin Time 11.9 sec (9.3-11.8)
[2024-04-11] MEDS: VANCOMYCIN 1GM/200ML PREMIX 200 ML IV SCH (11:15)
[2024-04-11 13:35] LABS: Chloride 109 mmol/L (98-107); Potassium 3.4 mmol/L (3.5-5.1); Sodium 138 mmol/L (136-145)
[2024-04-11 13:36] LABS: Anion Gap 8 (5-15); Carbon Dioxide 21 mmol/L (20-31)
[2024-04-11 13:37] LABS: Calcium 8.1 mg/dL (8.7-10.4)
[2024-04-11 13:42] LABS: BUN/Creatinine Ratio 8.7 (10.0-20.0); Blood Urea Nitrogen 9 mg/dL (9-23); Glucose 119 mg/dL (74-106)
[2024-04-11] MEDS: POTASSIUM CHL 20MEQ/100ML 100 ML IV ONE (15:15)
[2024-04-11] MEDS: ACETAMINOPHEN 325 MG TAB PO ONE (15:15)
--- NOTE | 2024-04-11 15:35 | DVHPNRES ---
Progress Note Date Seen: Apr 11, 2024 Resident Creating Document: KI FLANAGAN RESIDENT Medical Necessity Reason Pt with a Central, PICC or Fol: No Subjective Review of Systems This is a 34-year-old male patient with no PMH/PSH who presented to the ER with a chief complaint of generalized body ache and weakness starting 04/08. Patient reports generalized body pain and fever associated with chills starting the night of 04/08. The next day he reports he was nauseous and feeling dizzy and therefore he went to the urgent care where his temperature was 102 F therefore he was sent to the ER. He reports extreme thirst, and a diffuse bandlike headache. Patient experienced abdominal pain and 2 episodes of vomiting since he has been in the hospital, says that the vomiting was pinkish later. Denies sore throat/a sick contacts/any travel history/shortness of breath or cough. Allergic history: No known allergies Social history Lives with his , quit smoking 2 years back-15 pack-year history Drinks occasionally Denies illicit drug use Patient seen and examined at bedside. Reports feeling chills and thirst. Patient denies sore throat/cough/shortness of breaths but has exudative tongue lesions which are scrappable, pharynx is erythematous. Review of Systems: HEENT:Normal, CVS:Normal, RESPIRATORY:Normal, GI:Normal, :Normal, NEURO:Normal Objective vital signs Vital Sign Date Time Temp Pulse Resp B/P (MAP) Pulse Ox O2 Delivery O2 Flow Rate FiO2 04/11/24 14:45 102.4 04/11/24 12:11 123 22 128/68 (88) 94 04/11/24 08:11 Room Air* 0 21 Total Intake and Output 04/10/24 04/10/24 04/11/24 15:00 23:00 07:00 Intake Total 1000 ml 4150 ml 2220 ml Balance 1000 ml 4150 ml 2220 ml medications Current Medications Medications Dose Ordered Sig/Jese Route Start Time Stop Time Status Last Admin Dose Admin Sodium Chloride 1,000 ml @ 120 mls/hr Q8H20M IV 04/10/24 16:15 04/11/24 09:39 120 MLS/HR Ondansetron HCl 4 mg Q4HP PRN IV 04/10/24 16:15 Docusate Sodium 100 mg BIDPRN PRN PO 04/10/24 16:15 Morphine Sulfate 2 mg Q4HPRN PRN IV 04/10/24 16:15 04/11/24 08:58 2 MG Nitroglycerin 0.4 mg Q5MINP PRN SL 04/10/24 17:30 Acetaminophen 650 mg Q6HP PRN PO 04/10/24 17:45 04/11/24 14:45 650 MG Vancomycin HCl 0 ml @ 0 mls/hr UD IV 04/10/24 18:00 Piperacillin Sod/ Tazobactam Sod 100 ml @ 25 mls/hr Q6HR IV 04/10/24 18:00 04/11/24 12:17 25 MLS/HR Vancomycin HCl 200 ml @ 200 mls/hr Q12H IV 04/11/24 10:00 04/11/24 11:15 200 MLS/HR Examination Young male patient lying in bed, in no acute distress General: Overweight, low-grade fever, palor, mucosae are moist. Oropharyngeal examination shows white exudates on tongue, erythematous oropharynx, tonsils can not be visualized due to extremity gag reflux. Cardiovascular: Tachycardia but Regular S1 and S2. No murmurs, gallops or rubs. No JVD elevation. No pedal edema Respiratory: Normal B/L air entry on room air. Clear lung sounds on auscultation Abdomen: Soft, suprapubic tenderness, nondistended, normoactive bowel sounds, no rebound tenderness, no organomegaly, no masses Genitourinary: Deferred MSK/skin: Mobilizes 4 limbs. Skin is dry and warm Neurological: No motor, no sensitive deficits, normal speech. Pupils are isocoric and reactive. Psych/Mental Status: A/Ox4 Examination: GENERAL:Normal, HEENT:Normal, NECK:Normal, LUNGS:Normal, CVS:Normal, ABDOMEN:Normal, MSK:Normal laboratory and microbiology Laboratory Tests 04/11/24 13:07 04/11/24 03:22 Test 04/11/24 13:07 Range/Units Serum Glucose 119 H 74-106 mg/dL Microbiology Date/Time Source Procedure Growth Status 04/10/24 11:03 Blood Blood Culture - Preliminary NO GROWTH AFTER 24 HOURS OF INCUBATION. Resulted Labs and/or images reviewed: Labs reviewed by me, Image(s) reviewed by me Problem List/Assessment/Plan Problem List/Assessment/Plan Sepsis secondary to acute colitis versus streptococcal pharyngitis Group a streptococcal pharyngitis Abdominal pain secondary to Diffuse colitis Lactic acidosis Started IV vancomycin and Zosyn starting 04/10 Continue IV NS at 120 cc/hour Lactic acid elevated at 2.3 Prelim blood culture negative, throat culture pending WBC trending down from 20 to 15 with neutrophilic predominance Retic count 1.56, haptoglobin ? Normocytic anemia H&H 13.4/38, MCV 83 Retic count 1.56, haptoglobin pending, LDH 296, indirect bilirubin 1.1 Persistent Headache Neurology consult Head CT pending Transaminitis secondary to steatosis AST> ALT, AST/ALT ratio less than 1 Ultrasound abdomen showing liver 15.8 cm in length with the increased echogenicity suggesting steatosis Hepatitis panel pending RIP due to VMN - resolved Creatinine 1.63 on arrival, now 1.0 Ruled out DVT Lower extremity Doppler unremarkable Diet Clear liquid GERD prophylaxis Pantoprazole 40 mg IV Plan discussed with patient in which all questions have been answered Goals of care discussed with patient for more than 25 minutes, full code status Case discussed with Dr. Daniel. Electrolyte derangements-Moderate hypokalemia and hypomagnesemia Supplemented Plan discussed with: Patient My Orders My Orders Orders - KI FLANAGAN Procedure Category Date Status Time Drug Screen LAB 04/11/24 Logged 08:32 Vitamin B12 LAB 04/11/24 In Process 08:32 Vitamin D, 25-Hydroxy LAB 04/11/24 In Process 08:32 Haptoglobin LAB 04/11/24 In Process 08:32 Nose Throat Culture DIDI 04/11/24 Logged 12:56 Date of Service: Apr 11, 2024 Billing Provider: ANI DANIEL DO Common Visit Codes: [id number] INP/OBS CARE(HIGH) KI FLANAGAN Apr 11, 2024 15:35 ANI DANIEL DO Apr 15, 2024 06:47
[2024-04-11] MEDS: PANTOPRAZOLE 40 MG/10 ML VIAL INJ IV ONE (15:45)
--- NOTE | 2024-04-11 21:55 | DVH ---
Procedure: CT HEAD WITHOUT CONTRAST Study Date and Requested Time: 04/11/2024 09:20 PM History: PERSISTENT BAILEY Comparison: None Dose: CTDI: 60.07 mGy DLP: 962.39 mGycm Technique: Multiplanar images obtained through the brain without intravenous contrast. Findings: Normal brain volume and formation. No hemorrhages, masses, mass effect, midline shift, herniation or cytotoxic edema following a large v ascular territory. No intra-axial or extra-axial fluid collections. No evidence of hydrocephalus. The basal cisterns are patent. The pituitary gland, sella and parasellar regions are unremarkable. The cerebellar tonsils are in nor mal position. The cerebellum is unremarkable. The orbits and globes are unremarkable. There is mild pansinus mucoperiosteal thickening. The mastoid s are clear. There are no worrisome calvarial lesions. 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 Impression: No evidence of acute intracranial abnormality. Mild pansinus disease.
--- NOTE | 2024-04-11 22:42 | BSKYNEURO ---
[place] [facility] Note # Demographics Consult Type: General Neurology Patient Location: Inpatient First Name: Dwight Engel Last Name: Santhosh Date of : 1990 Age: 34 Gender: Male Facility: [facility] Time of Initial Page ( Time): 04/11/2024, 16:20 Time of Return Call ( Time): 04/11/2024, 16:20 # HPI History: 34 y/o M admitted yesterday with BAILEY, fever 103 and N/V x [address] head negative. WBC 20, RIP, lactate 2.3, strep positive. Started on vancomycin and zosyn. Has had persistent headache. # Exam Time of Exam (): 04/11/2024, 22:21 Mental Status: - alert and oriented x 3 - follows commands Language: - normal speech Cranial Nerves: - extra ocular movements intact - normal visual au - no facial droop - no dysarthria Motor: - no drift Sensory: - normal sensation Cerebellar: - normal cerebellar exam # Assessment Impression: sepsis consider meningitis # Plan Diagnostic Test: - Lumbar puncture: cell count, protein, glucose, gram stain, and culture CSF meningitis PCR panel Medication: scheduled tylenol 1gm 700, 1300, 1900 scheduled toradol 30mg IV 700, 1300,1900 gabapentin 200mg TID oxycodone 5mg TID PRN breakthrough pain Other: - If patient has any neurological deterioration please call me back immediately # Logistics Attestation of consult completion: The patient is located at: [facility]. Facility staff participated in the visit. I performed this telemedicine visit from my offsite office utilizing interactive 2 way audio and visual telecommunication technology. Total time spent in telemedicine encounter: I spent 30 minutes reviewing clinical data and/or imaging, obtaining history, examining the patient, communicating with the onsite care team, and in preparation of this report. # Demographics First Name: Dwight Engel Last Name: Santhosh Facility: [facility] Electronically signed at 04/11/2024 22:42 () by DO Trevor Jara ELIZABETH A DO Apr 11, 2024 22:42
[2024-04-12] VITALS (24 sets, daily range): BP systolic 87–139; BP diastolic 43–97; PULSE 77–115; RESP 14–39; TEMP 97.5–100.6; O2SAT 89–98
[2024-04-12 05:35] LABS: Basophils # (auto) 0 10 ^3/uL (0-0.2); Basophils % (auto) 0.1 % (0.0-2.0); Eosinophils # (auto) 0.7 10 ^3/uL (0-0.8); Eosinophils % (auto) 4.5 % (0.0-7.0); Hematocrit 37.5 % (41.0-53.0); Hemoglobin 12.7 g/dL (13.5-17.5); Lymphocytes # (auto) 0.9 10 ^3/uL (0.4-5.4); Lymphocytes % (auto) 6.1 % (10.0-50.0); Mean Corpuscular Hemoglobin 28.5 pg (28.0-32.0); Mean Corpuscular Volume 83.8 fL (80.0-100.0); Monocytes # (auto) 0.8 10 ^3/uL (0-1.3); Monocytes % (auto) 5.6 % (0.0-12.0); Neutrophils # (auto) 12.2 10 ^3/uL (1.6-8.6); Neutrophils % (auto) 83.7 % (37.0-80.0); Platelet Count (auto) 225 10^3/uL (140-450); Red Blood Cells 4.47 10^6/uL (4.5-5.90); Red Cell Distribution Width 13.5 % (11.8-14.3); White Blood Cell 14.6 10^3/uL (4.4-10.8)
[2024-04-12 05:44] LABS: Alanine Aminotransferase 168 U/L (7-40); Albumin 3.2 g/dL (3.2-4.8); Alkaline Phosphatase 102 U/L (46-116); Anion Gap 8 (5-15); Aspartate Aminotransferase 80 U/L (13-40); BUN/Creatinine Ratio 9.1 (10.0-20.0); Bilirubin, Total 1.6 mg/dL (0.2-1.0); Blood Urea Nitrogen 8 mg/dL (9-23); Calcium 8.3 mg/dL (8.7-10.4); Carbon Dioxide 22 mmol/L (20-31); Chloride 109 mmol/L (98-107); Glucose 103 mg/dL (74-106); Potassium 3.1 mmol/L (3.5-5.1); Sodium 139 mmol/L (136-145)
[2024-04-12 05:45] LABS: Total Protein 5.9 g/dL (5.7-8.2)
[2024-04-12] MEDS ORDERED: KETOROLAC TROMETH 30 MG/ML 1ML VIAL IV PRN (06:45)
[2024-04-12] MEDS ORDERED: oxyCODONE HCL 5MG TAB PO PRN (06:45)
[2024-04-12] MEDS: ACETAMINOPHEN 500 MG TAB PO SCH ×2 (06:45→10:07)
[2024-04-12] MEDS: GABAPENTIN 100 MG CAP PO SCH (06:45)
[2024-04-12] MEDS: POTASSIUM CHL 20MEQ/100ML 100 ML IV SCH (06:52)
[2024-04-12 09:01] LABS: Hepatitis B Surface Antibody Positive (Negative)
[2024-04-12] MEDS: PANTOPRAZOLE 40 MG/10 ML VIAL INJ IV SCH (09:27)
[2024-04-12 09:35] LABS: Hepatitis C Antibody Negative (Negative)
--- NOTE | 2024-04-12 11:01 | DVHPNRES ---
Progress Note Date Seen: Apr 12, 2024 Resident Creating Document: KI FLANAGAN RESIDENT Medical Necessity Reason Pt with a Central, PICC or Fol: No Subjective Review of Systems This is a 34-year-old male patient with no PMH/PSH who presented to the ER with a chief complaint of generalized body ache and weakness starting 04/08. Patient reports generalized body pain and fever associated with chills starting the night of 04/08. The next day he reports he was nauseous and feeling dizzy and therefore he went to the urgent care where his temperature was 102 F therefore he was sent to the ER. He reports extreme thirst, and a diffuse bandlike headache. Patient experienced abdominal pain and 2 episodes of vomiting since he has been in the hospital, says that the vomiting was pinkish later. Denies sore throat/a sick contacts/any travel history/shortness of breath or cough. Allergic history: No known allergies Social history Lives with his , quit smoking 2 years back-15 pack-year history Drinks occasionally Denies illicit drug use 04/11 - Patient seen and examined at bedside. Reports feeling chills and thirst. Patient denies sore throat/cough/shortness of breaths but has exudative tongue lesions which are scrappable, pharynx is erythematous. 04/12 - seen and examined in [facility]. Feeling better, resolved. Woke up with increased appetite and is tolerating clear liquid diet very well. Suprapubic abdominal tenderness noted on exam. Saturating 97 on room air. WBC count trending down. BNP 97. Advanced diet to soft mechanical diet. Patient had a bowel movement overnight Objective vital signs Vital Sign Date Time Temp Pulse Resp B/P (MAP) Pulse Ox O2 Delivery O2 Flow Rate FiO2 04/12/24 09:00 110 39 137/80 (99) 94 04/12/24 08:00 98.7 98.7 04/12/24 08:00 Nasal Cannula* 2 28 Total Intake and Output 04/11/24 04/11/24 04/12/24 15:00 23:00 07:00 Intake Total 1331.656 ml 1463.66 ml 940 ml Output Total 1355 ml 800 ml Balance 1331.656 ml 108.66 ml 140 ml medications Current Medications Medications Dose Ordered Sig/Jese Route Start Time Stop Time Status Last Admin Dose Admin Ondansetron HCl 4 mg Q4HP PRN IV 04/10/24 16:15 Docusate Sodium 100 mg BIDPRN PRN PO 04/10/24 16:15 Morphine Sulfate 2 mg Q4HPRN PRN IV 04/10/24 16:15 04/11/24 20:13 2 MG Vancomycin HCl 0 ml @ 0 mls/hr UD IV 04/10/24 18:00 Piperacillin Sod/ Tazobactam Sod 100 ml @ 25 mls/hr Q6HR IV 04/10/24 18:00 04/11/24 12:17 25 MLS/HR Vancomycin HCl 200 ml @ 200 mls/hr Q12H IV 04/11/24 10:00 04/12/24 09:27 200 MLS/HR Pantoprazole Sodium 40 mg DAILY IV 04/12/24 10:00 04/12/24 09:27 40 MG Potassium Chloride 100 ml @ 50 mls/hr Q2H IV 04/12/24 06:45 04/12/24 12:44 04/12/24 09:28 50 MLS/HR Ketorolac Tromethamine 30 mg Q8H PRN IV 04/12/24 06:45 04/17/24 06:44 Gabapentin 200 mg TID PO 04/12/24 06:45 Oxycodone HCl 5 mg Q8H PRN PO 04/12/24 06:45 Acetaminophen 1,000 mg Q8H PO 04/12/24 10:00 04/12/24 10:07 1,000 MG Examination Young male patient lying in bed, in no acute distress General: Overweight, low-grade fever, palor, mucosae are moist. Oropharyngeal examination shows white exudates on tongue, erythematous oropharynx, tonsils can not be visualized due to extreme gag reflux. Cardiovascular: Tachycardia but Regular S1 and S2. No murmurs, gallops or rubs. No JVD elevation. Pitting edema in the lower extremities. Respiratory: Normal B/L air entry on room air. Clear lung sounds on auscultation Abdomen: Soft, suprapubic tenderness, nondistended, normoactive bowel sounds, no rebound tenderness, no organomegaly, no masses Genitourinary: Deferred MSK/skin: Mobilizes 4 limbs. Skin is dry and warm. Lower extremity pitting edema. Neurological: No motor, no sensitive deficits, normal speech. Pupils are isocoric and reactive. Negative Kernig/Brudzinski sign Psych/Mental Status: A/Ox4 laboratory and microbiology Laboratory Tests 04/12/24 05:06 Test 04/12/24 05:06 Range/Units Serum Glucose 103 74-106 mg/dL Microbiology Date/Time Source Procedure Growth Status 04/10/24 11:03 Blood Blood Culture - Preliminary NO GROWTH AFTER 24 HOURS OF INCUBATION. Resulted Labs and/or images reviewed: Labs reviewed by me, Image(s) reviewed by me Problem List/Assessment/Plan Problem List/Assessment/Plan Persistent fever due to sepsis Sepsis secondary to acute colitis versus streptococcal pharyngitis Group A streptococcal pharyngitis Abdominal pain and diarrhea secondary to Diffuse colitis Lactic acidosis due to sepsis Leukocytosis due to sepsis Started IV vancomycin and Zosyn starting 04/10 DC IV NS at 120 cc/hour Lactic acid elevated at 2.3 Prelim blood culture negative, throat culture pending WBC trending down from 20 to 14 with neutrophilic predominance Retic count 1.56, haptoglobin Stool occult negative Continue close monitoring Ruled out HIV HIV testing negative Rule out infective endocarditis Echocardiogram pending ? Normocytic anemia H&H 13.4/38, MCV 83 Retic count 1.56, haptoglobin pending, LDH 296, indirect bilirubin 1.1 Severe Persistent Headache with intractable nausea and vomiting - resolved Neurology consult - tele neuro started on acetaminophen 1 g t.i.d., ketorolac 30 mg IV Q 8 p.r.n., oxycodone 5 mg for breakthrough pain Head CT completed, shows no evidence of acute intracranial abnormality. Mild pansinus disease Consulted Dr. 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 Ramires. Echocardiogram pending. Plan discussed with: Patient, Other (Father at bedside, brother at bedside) My Orders My Orders Orders - KI FLANAGAN Procedure Category Date Status Time Nose Throat Culture DIDI 04/11/24 Logged 12:56 Pantoprazole PHA 04/12/24 In Process (Protonix) 10:00 Acute Hepatitis Panel LAB 04/11/24 In Process 15:33 Comprehensive LAB 04/11/24 In Process Hepatitis Panel 15:33 Clostridium Difficile DIDI 04/11/24 Uncollected Toxin 18:24 Stool Occult Blood LAB 04/12/24 In Process 04:00 Stool Bacterial DIDI 04/11/24 Uncollected Culture 18:24 Stool Wbc LAB 04/11/24 Logged 18:24 Potassium Chl PHA 04/12/24 In Process 20meq/100ml 06:45 Ketorolac Injection PHA 04/12/24 In Process (Toradol Injection) 06:45 Gabapentin Capsule PHA 04/12/24 In Process (Neurontin Capsule) 06:45 Oxycodone Immediate PHA 04/12/24 In Process Rel Tablet 06:45 Acetaminophen Tablet PHA 04/12/24 In Process (Tylenol Tablet) 10:00 Critical Care Time (mins): 120 Addendum Addendum Addendum I was physically present for the garcia portions of the service provided to patient by THE RESIDENT. I have reviewed the documentation, discussed the case with resident and agree with the resident's documentation except as noted. Also the patient's clinical case was discussed with the patient's nurse. This medical document was created using an electronic medical record system with computerized dictation system. Although this document has been carefully reviewed, there might still be some phonetic and typographical errors. These areas are purely typographical due to imperfections of the software programs, and do not reflect any compromise in the patient's medical care. Late signature. Date of Service: Apr 12, 2024 Billing Provider: SCARLETT RAMIRES MD Common Visit Codes: 54405-[id number] CARE 30-74 MIN (120 minutes), 69450-AYOCNCBT CARE-EACH +30MIN Secondary Visit Codes: 52724-VEOGHYBA CARE PLAN 30 MINUTES (20 minutes) KI FLANAGAN Apr 12, 2024 11:01 SCARLETT RAMIRES MD Apr 13, 2024 05:22
[2024-04-12 11:43] LABS: Amphetamine Screen, Urine Neg (NEGATIVE); Barbiturate Scree,Urine Neg (NEGATIVE); Benzodiazephine Screen, Urine Neg (NEGATIVE); Cocaine Screen, Urine Neg (NEGATIVE); Opiate Scree,Urine Neg (NEGATIVE); Phencyclidine Screen, Urine Neg (NEGATIVE)
[2024-04-12 11:46] LABS: Cannabinoid Screen, Urine Neg (NEGATIVE)
[2024-04-12 11:50] LABS: Hepatitis B Core Total AB Negative (Negative)
[2024-04-12 12:37] LABS: Hepatitis A Ab IgM Negative; Hepatitis A Total Antibody Positive (Negative); Hepatitis B Core IgM Negative; Hepatitis B Surface Antibody Positive (Negative); Hepatitis B Surface Antigen Negative (Negative); Hepatitis C Antibody Negative (Negative)
--- NOTE | 2024-04-12 16:49 | DVHSR ---
APPROVED REPORT EXAM: Two-dimensional and M-mode echocardiogram with Doppler and color Doppler. INDICATION ? Endocarditis RISK FACTORS Height: 5'6", Weight: 188 DIMENSIONS LVDd4.7 (3.8-5.7cm)LA (2D)4.1 (1.9-4.0cm)Aortic Root3.1 (2.0-3.7cm) LVDs3.1 (2.5-4.0cm)LA (MM) (1.9-4.0cm)Aortic Cusp Exc1.9 (1.5-2.0cm) EF (%) 62.0 (55-70%)Rt. Atrium4.6 (1.9-4.0cm)Asc. Aorta3.1 cm IVSd1.1 (0.7-1.1cm)RV (D)4.1 (1.8-2.4cm) PWd0.8 (0.7-1.1cm) Mitral Valve MitralMitral Stenosis E wave1.06m/sMV Mean GR.mmHg A wave0.58m/sMV Peak GR.mmHg E/A ratio1.82D MVAcm2 DECEL [id number] 1/2 Timems Aortic Valve Aortic ValveAortic Stenosis V11.26m/Dorian Mean GR.3mmHg V21.22m/Dorian Peak GR.6mmHg LVOT Diameter2.2 (1.8-2.4cm)Doppler AVA3.92cm2 Pulmonic Valve V21.03m/s Conclusion Normal left ventricular size and dimension. Normal left ventricular systolic function estimated ejec tion fraction 55%. Normal diastolic function. Normal right ventricular size and dimension. Normal right ventricular systolic function. Normal biatrial size and dimension. Normal aortic valve structure and function. Normal mitral valve structure function. Normal tricuspid valve structure and function. The pulmonary valve is grossly normal. No pericardial effusion.
--- NOTE | 2024-04-12 21:45 | DVHINCON2 ---
Date of service: Apr 12, [address] Escalante Reason for Consultation Persistent headache History of Present Illness Mr. Dwight Engel is a 34 years old right-handed gentleman otherwise healthy, he came to the hospital on 04/10/2024 with a chief company of chills, fever, nausea, vomiting, and abdominal pain, at this time, he is alert, fully oriented, he provided the following history On 04/08/2024, he developed abdominal pain, nausea, vomiting, muscle pain in both lower extremity (as if he had excessive amount of physical activity), m eanwhile he also developed global throbbing headache, 03/18, and over this weekend, the headache was 9-10/10, but he has been headache-free on 03/12/2024 There was no associated diarrhea, skin rashes, sore throat, runny nose, stiffness in the neck. He was never had similar problem before, he denies contacted sick persons recently In the hospital, the patient had fever A strep rapid, 03/10/2024: Positive Hepatitis panel, 04/30/2024: Hepatitis-A antibody, HGB Ab HIV one and two antibody, 04/12/2024: Negative UDS, 04/12/2024: Negative Plasma alcohol, 04/12/2024: Three WBC/HB/PLT/MCV, 04/10/2024: 20.7/15.6/242/81.9, 04/12/2024: 14.6/12.7/225/83.8 BMP, 04/12/2023: Unremarkable Lactic Acid, 04/10/2024: 2.4, 2.3, 04/11/2024: 2, 2.3 TBI/AST/ALT/AP, 04/12/2024:1.6/80/168/102 Vitamin B12, 04/11/24: 425 TSH, 04/11/2024: 1.55 Echocardiogram, 03/12/2024: Normal left ventricular size and dimension. Normal left ventricular systolic function estimated ejection fraction 55%. Normal diastolic function. Normal right ventricular size and dimension. Normal right ventricular systolic function. Normal biatrial size and dimension. Normal aortic valve structure and function. Normal mitral valve structure function. Normal tricuspid valve structure and function. The pulmonary valve is grossly normal. No pericardial effusion. Ultrasound, abdomen, 04/10/2024: Liver measures 15.8 cm in length with increased echogenicity of the hepatic parenchyma suggesting steatosis Chest x-ray, 04/10/2024: Bronchovascular crowding due to low lung volumes. Otherwise, no evidence for acute cardiopulmonary disease CT head, 04/11/2024: No evidence of acute intracranial abnormality. Mild pansinus disease CT, abdomen pelvis, 04/10/2024: 1. Fat stranding in the left hemipelvis, extending into the left groin. Findings are suspicious for infectious or inflammatory etiology but the source is unclear. Adjacent colon appears to be unaffected . Additionally, there is left inguinal lymphadenopathy, which may be reactive. Consider left lower extremity venous doppler ultrasound to exclude thrombus. 2. Mild diffuse wall thickening of the entire colon which may represent colitis Past Medical History No major medical problems Past Surgical History None Family History Noncontributory Social History He was a tobacco smoker, but no history of alcohol or recreational substance abuse Allergies: Coded Allergies: NO KNOWN ALLERGIES (Unverified , 04/10/24) Current Medications Current Medications Medications (Trade) Dose Ordered Sig/Jese Route PRN Reason Start Time Stop Time Status Last Admin Pantoprazole Sodium (Protonix) 40 mg DAILY IV 04/12/24 10:00 04/12/24 09:27 Potassium Chloride 100 ml @ 50 mls/hr Q2H IV 04/12/24 06:45 04/12/24 12:44 DC 04/12/24 12:07 Acetaminophen (Tylenol Tablet) 1,000 mg Q8H PO 04/12/24 06:45 04/12/24 10:03 DC Ketorolac Tromethamine (Toradol Injection) 30 mg Q8H PRN IV MILD PAIN (1-3 PAIN SCALE) 04/12/24 06:45 04/17/24 06:44 Gabapentin (Neurontin Capsule) 200 mg TID PO 04/12/24 06:45 Oxycodone HCl 5 mg Q8H PRN PO SEVERE PAIN (7-10 PAIN SCALE) 04/12/24 06:45 Acetaminophen (Tylenol Tablet) 1,000 mg Q8H PO 04/12/24 10:00 04/12/24 17:31 Review of Systems As above, the other systems are negative Vital Signs Vital Signs Date Time Temp Pulse Resp B/P (MAP) Pulse Ox O2 Delivery O2 Flow Rate FiO2 04/12/24 20:00 102 04/12/24 20:00 22 94 Room Air* 0 21 04/12/24 18:00 115/73 (87) 04/12/24 17:31 99.5 Physical Exam GENERAL EXAM: General: the patient is well developed and nourished. No acute distress. HEENT: Normocephalic, neck is supple, no carotid bruits. No mass. RESPIRATORY: Normal respiratory effort with symmetrical lung expansion. Lungs clear to auscultation. CARDIOVASCULAR: Regular rate and rhythm with no murmurs. S1, S2. ABDOMEN: Soft, nontender, normal bowel sound MUSCULOSKELETAL EXAM: No skin rashes NEUROLOGICAL: MENTAL STATUS: Awake and alert. Oriented to person, place, time and general circumstances. Able to give personal history. SPEECH, LANGUAGE, HIGHER CORTICAL FUNCTION: no aphasia or dysathria. CRANIAL NERVES: #2: Intact visual au to confrontation. The optic discs were sharp. Retinal background was uniformly pink in appearance. There was no hemorrhages or exudates. #3,4,6: Pupils are equal, round and reactive. EOMs full and conjugate. Mild bilateral gaze evoked nystagmus. #5: Facial sensation intact in all three divisions bilaterally. Mandibular stren gth intact. #7: Facial muscles symmetrical and strength intact. #8: Hearing grossly normal to voice. #9,10: Uvula and soft palate rise in the midline. Swallow and voice are normal. #11: Trapezius and sternomastoid strength intact bilaterally. #12: Tongue midline. No fasciculations or atrophy. SENSATION: Sensation to touch and pinprick is normal. MOTOR: Normal tone in the upper and lower extremity. Normal muscle bulk. No fasciculations. No abnormal movements or posturing. Muscle strength of the major groups in the upper extremities is 5/5. Muscle strength of the major groups in the lower extremities is 5/5. REFLEXES: Deep tendon reflexes normal and symmetrical. No pathological reflexes. CEREBELLAR/COORDINATION: Finger to nose and heel to hong are normal bilaterally. GAIT/STATION: deferred. Labs/Diagnostic Data Labs Test 04/12/24 13:47 04/12/24 11:00 04/12/24 09:26 04/12/24 05:06 Range/Units Plasma/Serum Blood Alcohol < 3.0 <10 mg/dL Urine Opiates Screen Neg NEGATIVE Urine Fentanyl Screen Neg NEGATIVE Urine Barbiturates Screen Neg NEGATIVE Urine Phencyclidine Screen Neg NEGATIVE Urine Amphetamines Screen Neg NEGATIVE Urine Benzodiazepines Screen Neg NEGATIVE Urine Cocaine Screen Neg NEGATIVE Urine Cannabinoids Screen Neg NEGATIVE Stool Occult Blood Negative Negative Stool Occult Blood Sample #3 Negative White Blood Count 14.6 H 4.4-10.8 10^3/uL Red Blood Count 4.47 L 4.5-5.90 10^6/uL Hemoglobin 12.7 L 13.5-17.5 g/dL Hematocrit 37.5 L 41.0-53.0 % Mean Corpuscular Volume 83.8 80.0-100.0 fL Mean Corpuscular Hemoglobin 28.5 28.0-32.0 pg Mean Corpuscular Hemoglobin Concent 34.0 32.0-36.0 g/dL Red Cell Distribution Width 13.5 11.8-14.3 % Platelet Count 225 140-450 10^3/uL Mean Platelet Volume 7.9 6.9-10.8 fL Neutrophils (%) (Auto) 83.7 H 37.0-80.0 % Lymphocytes (%) (Auto) 6.1 L 10.0-50.0 % Monocytes (%) (Auto) 5.6 0.0-12.0 % Eosinophils (%) (Auto) 4.5 0.0-7.0 % Basophils (%) (Auto) 0.1 0.0-2.0 % Neutrophils # (Auto) 12.2 H 1.6-8.6 10 ^3/uL Lymphocytes # (Auto) 0.9 0.4-5.4 10 ^3/uL Monocytes # (Auto) 0.8 0-1.3 10 ^3/uL Eosinophils # (Auto) 0.7 0-0.8 10 ^3/uL Basophils # (Auto) 0 0-0.2 10 ^3/uL Nucleated Red Blood Cells 0.0 % Sodium Level 139 136-145 mmol/L Potassium Level 3.1 L 3.5-5.1 mmol/L Chloride Level 109 H 98-107 mmol/L Carbon Dioxide Level 22 20-31 mmol/L Anion Gap 8 5-15 Blood Urea Nitrogen 8 L 9-23 mg/dL Creatinine 0.88 0.700-1.30 mg/dL Glomerular Filtration Rate Calc 115 >90 mL/min BUN/Creatinine Ratio 9.1 L 10.0-20.0 Serum Glucose 103 74-106 mg/dL Calcium Level 8.3 L 8.7-10.4 mg/dL Magnesium Level 1.9 1.6-2.6 mg/dL Total Bilirubin 1.6 H 0.2-1.0 mg/dL Aspartate Amino Transferase (AST) 80 H 13-40 U/L Alanine Aminotransferase (ALT) 168 H 7-40 U/L Alkaline Phosphatase 102 46-116 U/L B-Type Natriuretic Peptide 97.15 0-100 pg/mL Total Protein 5.9 5.7-8.2 g/dL Albumin 3.2 3.2-4.8 g/dL HIV (1&2) Antibody Negative Negative Test 04/11/24 18:03 04/11/24 16:04 04/11/24 09:27 04/11/24 03:22 Range/Units Lactic Acid Level 1.3 0.4-2.0 mmol/L Hepatitis A IgM Antibody Negative Hepatitis A Antibody Total Positive H Negative Hepatitis B Surface Antigen Negative Negative Hepatitis B Surface Antibody Positive H Negative Hepatitis B Core Total Antibody Negative Negative Hepatitis B Core IgM Antibody Negative Hepatitis C Antibody Negative Negative Prothrombin Time 11.9 H 9.3-11.8 sec Prothrombin Time INR 1.13 0.9-1.15 Activated Partial Thromboplast Time 28.6 24.5-34.5 SEC Reticulocyte Count (auto) 1.56 H 0.5-1.5 % Hemoglobin A1c < 3.8 <5.7 % A1C Phosphorus Level 1.6 L 2.4-5.1 mg/dL Lactate Dehydrogenase 294 H 120-246 U/L Vitamin B12 Level 425 211-911 pg/mL Vitamin D 25-Hydroxy 20.0 L 30.0-100 ng/mL Thyroid Stimulating Hormone (TSH) 1.55 0.55-4.78 uIU/mL Random Vancomycin Level 16.7 H 5-10 ug/mL Test 04/10/24 12:38 04/10/24 11:24 04/10/24 11:03 Range/Units Urine Color Yellow Yellow Urine Clarity Clear Clear Urine pH 5.5 5.0-9.0 Urine Specific [place] 1.022 1.001-1.035 Urine Protein 1+ H Negative Urine Ketones Negative Negative Urine Blood Trace H Negative /uL Urine Nitrite Negative Negative Urine Bilirubin Negative Negative Urine Urobilinogen Normal Negative mg/dL Urine Leukocyte Esterase Negative Negative /uL Urine RBC 2 0 - 3 /hpf Urine WBC 9 0 - 3 /hpf Urine Squamous Epithelial Cells None seen <5 /hpf Urine Bacteria None seen None Seen /hpf Urine Hyaline Casts Few 0 - 2 /lpf Urine Glucose Normal Normal mg/dL Influenza Type A Antigen Negative Negative Influenza Type B Antigen Negative Negative SARS-CoV-2 Antigen (Rapid) Negative NEGATIVE Group A Streptococcus Rapid Positive Differential Total Cells Counted 100.0 100 Neutrophils % (Manual) 72 37.0-80.0 Band Neutrophils % (Manual) 9 Lymphocytes % (Manual) 9 L 10.0-50.0 Monocytes % (Manual) 8 0-12 Eosinophils % (Manual) 2 0-7 Basophils % (Manual) 0 0.0-2.0 Metamyelocytes % (manual) 0 Myelocytes % (Manual) 0 Promyelocytes % (Manual) 0 Blast Cells % (Manual) 0 Reactive Lymphocytes 0 Platelet Estimate Adequate Direct Bilirubin 1.2 H <0.3 mg/dL Lipase 28 12-53 U/L Microbiology Date/Time Source Procedure Growth Status 04/11/24 13:32 Nose MRSA Screen - Final Complete 04/10/24 11:03 Blood Blood Culture - Preliminary NO GROWTH AFTER 48 HOURS OF INCUBATION. Resulted Assessment Acute headache, along with chills, fever, GI symptoms, like the patient has infection, bacterial versus viral infection Rule out meningitis/aseptic meningitis Plan/Recommendation Monitoring Supportive treatment Aerosol isolation for now Telemetry Blood culture Follow-up labs IV antibiotics GI prophylaxis ID specialist consultation Plan discussed with: Patient, Other MOI BOLANOS MD Apr 12, 2024 21:45
[2024-04-13] VITALS (25 sets, daily range): BP systolic 92–126; BP diastolic 44–82; PULSE 64–108; RESP 13–30; TEMP 98.3–98.8; O2SAT 92–98
[2024-04-13 06:10] LABS: Calcium 8.6 mg/dL (8.7-10.4); Chloride 109 mmol/L (98-107); Potassium 3.6 mmol/L (3.5-5.1); Sodium 139 mmol/L (136-145)
[2024-04-13 06:11] LABS: Anion Gap 8 (5-15); Carbon Dioxide 22 mmol/L (20-31)
[2024-04-13 06:16] LABS: BUN/Creatinine Ratio 9.5 (10.0-20.0); Blood Urea Nitrogen 9 mg/dL (9-23); Glucose 96 mg/dL (74-106)
[2024-04-13 06:22] LABS: Hematocrit 38.1 % (41.0-53.0); Hemoglobin 13.1 g/dL (13.5-17.5); Mean Corpuscular Hemoglobin 28.9 pg (28.0-32.0); Mean Corpuscular Hgb Conc. 34.5 g/dL (32.0-36.0); Mean Corpuscular Volume 83.7 fL (80.0-100.0); Platelet Count (auto) 258 10^3/uL (140-450); Red Blood Cells 4.55 10^6/uL (4.5-5.90); Red Cell Distribution Width 13.3 % (11.8-14.3); White Blood Cell 10.3 10^3/uL (4.4-10.8)
[2024-04-13 06:29] LABS: Basophils % (manual) 0 (0.0-2.0); Blast Cells 0; Myelocytes % 0; Promyelocytes % 0; Reactive Lymphocytes 0
[2024-04-13 07:34] LABS: Albumin 3.5 g/dL (3.2-4.8); Bilirubin, Direct 0.5 mg/dL (<0.3); Bilirubin, Total 0.9 mg/dL (0.2-1.0); Total Protein 6.4 g/dL (5.7-8.2)
[2024-04-13 08:26] LABS: Band Neutrophils % (manual) 3; Eosinophils % (manual) 8 (0-7); Lymphocytes % (manual) 11 (10.0-50.0); Metamyelocytes % 1; Monocytes % (manual) 7 (0-12); Platelet Estimate Adequate
--- NOTE | 2024-04-13 08:41 | DVHPN2 ---
Progress Note - Dictate Date Seen: Apr 13, 2024 Medical Necessity Reason Pt with a Central, PICC or Fol: No Subjective Mr. Dwight Engel is a 34 years old right-handed gentleman otherwise healthy, he came to the hospital on 04/10/2024 with a chief company of chills, fever, nausea, vomiting, and abdominal pain I have seen and examined the patient, I have discussed with his nurse, Dr. Nichols. I have talked to his father and uncle He keeps doing fine, afebrile, no headache, fully oriented, otherwise no change on physical examination Group A strep rapid, 03/10/2024: Positive Hepatitis panel, 04/30/2024: Hepatitis-A antibody, HGB Ab HIV one and two antibody, 04/12/2024: Negative UDS, 04/12/2024: Negative Plasma alcohol, 04/12/2024: Three WBC/HB/PLT/MCV, 04/10/2024: 20.7/15.6/242/81.9, 04/12/2024: 14.6/12.7/225/83.8, 04/13/2024: 10.3/13.1/258/83.7 BMP, 04/12/2023: Unremarkable Lactic Acid, 04/10/2024: 2.4, 2.3, 04/11/2024: 2, 2.3 TBI/AST/ALT/AP, 04/12/2024:1.6/80/168/102 Vitamin B12, 04/11/24: 425 TSH, 04/11/2024: 1.55 Echocardiogram, 03/12/2024: Normal left ventricular size and dimension. Normal left ventricular systolic function estimated ejection fraction 55%. Normal diastolic function. Normal right ventricular size and dimension. Normal right ventricular systolic function. Normal biatrial size and dimension. Normal aortic valve structure and function. Normal mitral valve structure function. Normal tricuspid valve structure and function. The pulmonary valve is grossly normal. No pericardial effusion. Ultrasound, abdomen, 04/10/2024: Liver measures 15.8 cm in length with increased echogenicity of the hepatic parenchyma suggesting steatosis Chest x-ray, 04/10/2024: Bronchovascular crowding due to low lung volumes. Otherwise, no evidence for acute cardiopulmonary disease CT head, 04/11/2024: No evidence of acute intracranial abnormality. Mild pansinus disease CT, abdomen pelvis, 04/10/2024: 1. Fat stranding in the left hemipelvis, extending into the left groin. Findings are suspicious for infectious or inflammatory etiology but the source is unclear. Adjacent colon appears to be unaffected . Additionally, there is left inguinal lymphadenopathy, which may be reactive. Consider left lower extremity venous doppler ultrasound to exclude thrombus. 2. Mild diffuse wall thickening of the entire colon which may represent colitis vital signs Vital Sign Date Time Temp Pulse Resp B/P (MAP) Pulse Ox O2 Delivery O2 Flow Rate FiO2 04/13/24 08:00 98.7 79 21 117/82 (94) 96 98.7 04/13/24 07:57 Nasal Cannula* 2 28 Total Intake and Output 04/12/24 04/12/24 04/13/24 15:00 23:00 07:00 Intake Total 625 ml 925 ml 625 ml Output Total 800 ml 1850 ml 1650 ml Balance -175 ml -925 ml -1025 ml medications Current Medications Medications Dose Ordered Sig/Jese Route Start Time Stop Time Status Last Admin Dose Admin Ondansetron HCl 4 mg Q4HP PRN IV 04/10/24 16:15 Docusate Sodium 100 mg BIDPRN PRN PO 04/10/24 16:15 Morphine Sulfate 2 mg Q4HPRN PRN IV 04/10/24 16:15 04/11/24 20:13 2 MG Vancomycin HCl 0 ml @ 0 mls/hr UD IV 04/10/24 18:00 Piperacillin Sod/ Tazobactam Sod 100 ml @ 25 mls/hr Q6HR IV 04/10/24 18:00 04/13/24 06:08 25 MLS/HR Vancomycin HCl 200 ml @ 200 mls/hr Q12H IV 04/11/24 10:00 04/12/24 22:55 200 MLS/HR Pantoprazole Sodium 40 mg DAILY IV 04/12/24 10:00 04/12/24 09:27 40 MG Ketorolac Tromethamine 30 mg Q8H PRN IV 04/12/24 06:45 04/17/24 06:44 Gabapentin 200 mg TID PO 04/12/24 06:45 04/13/24 06:09 200 MG Oxycodone HCl 5 mg Q8H PRN PO 04/12/24 06:45 Acetaminophen 1,000 mg Q8H PO 04/12/24 10:00 04/12/24 17:31 1,000 MG objective General: the patient is well developed and nourished. No acute distress. MUSCULOSKELETAL EXAM: No skin rashes MENTAL STATUS: Subjective SPEECH, LANGUAGE, HIGHER CORTICAL FUNCTION: no aphasia or dysathria. CRANIAL NERVES: Pupils are equal, round and reactive. EOMs full and conjugate. No nystagmus. Facial sensation intact in all three divisions bilaterally. Mandibular strength intact. Facial muscles symmetrical and strength intact. SENSATION: Sensation to touch and pinprick is normal. MOTOR: Normal tone in the upper and lower extremity. Normal muscle bulk. No fasciculations. No abnormal movements or posturing. Muscle strength of the major groups in the extremities is 5/5. REFLEXES: Deep tendon reflexes normal and symmetrical. No pathological reflexes. CEREBELLAR/COORDINATION: Finger to nose and heel to hong are normal bilaterally. GAIT/STATION: deferred. laboratory and microbiology Laboratory Tests 04/13/24 05:00 Test 04/13/24 05:00 Range/Units Serum Glucose 96 74-106 mg/dL Problem List Acute headache, along with chills, fever, GI symptoms, like the patient has infection, bacterial versus viral infection Rule out meningitis/aseptic meningitis Assessment/Plan Monitoring Supportive treatment Aerosol isolation for now Telemetry Blood culture Follow-up labs IV antibiotics GI prophylaxis ID specialist consultation This medical document was created using an electronic medical record system with [email or web address] dictation system. Although this document has been carefully reviewed, there may still be some phonetic and typographical errors. These areas are purely typographical due to imperfections of the software programs, and do not reflect any compromise in the patient's medical care. Prognosis poor Plan discussed with: Patient, Other Total Time (mins): 40 MOI BOLANOS MD Apr 13, 2024 08:41
[2024-04-13] MEDS: POTASSIUM EFFERVESENT TAB 25 MEQ PO ONE (09:31)
[2024-04-13] MEDS: VANCOMYCIN 1GM/200ML PREMIX 200 ML IV SCH (10:26)
--- NOTE | 2024-04-13 14:31 | DVHPNRES ---
Progress Note Date Seen: Apr 13, 2024 Resident Creating Document: KI FLANAGAN RESIDENT Medical Necessity Reason Pt with a Central, PICC or Fol: No Subjective Review of Systems This is a 34-year-old male patient with no PMH/PSH who presented to the ER with a chief complaint of generalized body ache and weakness starting 04/08. Patient reports generalized body pain and fever associated with chills starting the night of 04/08. The next day he reports he was nauseous and feeling dizzy and therefore he went to the urgent care where his temperature was 102 F therefore he was sent to the ER. He reports extreme thirst, and a diffuse bandlike headache. Patient experienced abdominal pain and 2 episodes of vomiting since he has been in the hospital, says that the vomiting was pinkish later. Denies sore throat/a sick contacts/any travel history/shortness of breath or cough. Allergic history: No known allergies Social history Lives with his , quit smoking 2 years back-15 pack-year history Drinks occasionally Denies illicit drug use 04/11 - Patient seen and examined at bedside. Reports feeling chills and thirst. Patient denies sore throat/cough/shortness of breaths but has exudative tongue lesions which are scrappable, pharynx is erythematous. 04/12 - seen and examined in [facility]. Feeling better, resolved. Woke up with increased appetite and is tolerating clear liquid diet very well. Suprapubic abdominal tenderness noted on exam. Saturating 97 on room air. WBC count trending down. BNP 97. Advanced diet to soft mechanical diet. Patient had a bowel movement overnight 04/13- patient reports no active complaint. No febrile episode over the past 24 hours. Abdominal pain is mild now. Headache has resolved. Neurologist consulted ID. WBC trending down to 10. Objective vital signs Vital Sign Date Time Temp Pulse Resp B/P (MAP) Pulse Ox O2 Delivery O2 Flow Rate FiO2 04/13/24 12:00 98.3 80 24 116/79 (91) 96 98.3 04/13/24 07:57 Nasal Cannula* 2 28 Total Intake and Output 04/12/24 04/12/24 04/13/24 15:00 23:00 07:00 Intake Total 625 ml 925 ml 625 ml Output Total 800 ml 1850 ml 1650 ml Balance -175 ml -925 ml -1025 ml medications Current Medications Medications Dose Ordered Sig/Jese Route Start Time Stop Time Status Last Admin Dose Admin Ondansetron HCl 4 mg Q4HP PRN IV 04/10/24 16:15 Docusate Sodium 100 mg BIDPRN PRN PO 04/10/24 16:15 Morphine Sulfate 2 mg Q4HPRN PRN IV 04/10/24 16:15 04/11/24 20:13 2 MG Vancomycin HCl 0 ml @ 0 mls/hr UD IV 04/10/24 18:00 Piperacillin Sod/ Tazobactam Sod 100 ml @ 25 mls/hr Q6HR IV 04/10/24 18:00 04/13/24 12:26 25 MLS/HR Pantoprazole Sodium 40 mg DAILY IV 04/12/24 10:00 04/13/24 09:32 40 MG Ketorolac Tromethamine 30 mg Q8H PRN IV 04/12/24 06:45 04/17/24 06:44 Gabapentin 200 mg TID PO 04/12/24 06:45 04/13/24 06:09 200 MG Oxycodone HCl 5 mg Q8H PRN PO 04/12/24 06:45 Acetaminophen 1,000 mg Q8H PO 04/12/24 10:00 04/12/24 17:31 1,000 MG Vancomycin HCl 200 ml @ 200 mls/hr Q10H IV 04/13/24 10:00 04/13/24 10:26 200 MLS/HR Examination Young male patient lying in bed, in no acute distress General: Overweight, low-grade fever, palor, mucosae are moist. Oropharyngeal examination shows white exudates on tongue, erythematous oropharynx, tonsils can not be visualized due to extreme gag reflux. Cardiovascular: Tachycardia but Regular S1 and S2. No murmurs, gallops or rubs. No JVD elevation. Resolving Pitting edema in the lower extremities. Respiratory: Normal B/L air entry on room air. Clear lung sounds on auscultation Abdomen: Soft, suprapubic tenderness, nondistended, normoactive bowel sounds, no rebound tenderness, no organomegaly, no masses Genitourinary: Deferred MSK/skin: Mobilizes 4 limbs. Skin is dry and warm. Lower extremity pitting edema. Neurological: No motor, no sensitive deficits, normal speech. Pupils are isocoric and reactive. Negative Kernig/Brudzinski sign Psych/Mental Status: A/Ox4 laboratory and microbiology Laboratory Tests 04/13/24 05:00 Test 04/13/24 05:00 Range/Units Serum Glucose 96 74-106 mg/dL Microbiology Date/Time Source Procedure Growth Status 04/12/24 11:00 Stool Stool Culture - Preliminary Resulted 04/12/24 11:00 Stool Shiga Toxin I & II Pending Resulted 04/12/24 11:00 Stool Clostridium difficile Toxin Assay Pending Resulted 04/11/24 13:32 Nose MRSA Screen - Final Complete 04/10/24 11:03 Blood Blood Culture - Preliminary NO GROWTH AFTER 72 HOURS OF INCUBATION. Resulted Labs and/or images reviewed: Labs reviewed by me, Image(s) reviewed by me Problem List/Assessment/Plan Problem List/Assessment/Plan Sepsis secondary to Campylobacter acute colitis versus streptococcal pharyngitis Group a streptococcal pharyngitis Abdominal pain and diarrhea secondary to Diffuse colitis Lactic acidosis-resolved Leukocytosis-resolved Started IV vancomycin and Zosyn starting 04/10 DC IV NS at 120 cc/hour Lactic acid elevated at 2.3, now 1.3 Prelim blood culture negative, throat culture pending WBC trending down from 20 to 10 with neutrophilic predominance Retic count 1.56, haptoglobin [id number] Stool occult negative, stool culture - Campylobacter antigen detected MRSA screen is negative ID consulted based on Neurology recommendation Ruled out HIV HIV testing negative Rule out infective endocarditis Echocardiogram revealed normal LV size and dimension. Normal LV SF, normal LVEF at 55%. Normal diastolic function. Normal structural heart. No pericardial effusion. ? Normocytic anemia H&H 13.4/38, MCV 83 Retic count 1.56, haptoglobin 232, LDH 296, indirect bilirubin 1.1 Rule out meningitis/aseptic meningitis Severe Persistent Headache with intractable nausea and vomiting - resolved Neurology consult - tele psych started on acetaminophen 1 g t.i.d., ketorolac 30 mg IV Q 8 p.r.n., oxycodone 5 mg for breakthrough pain Head CT completed, shows no evidence of acute intracranial abnormality. Mild pansinus disease. Neurologist Dr. Chang on the case - low likelihood of meningitis Infectious disease consulted Transaminitis secondary to steatosis-resolving AST> ALT, AST/ALT ratio less than 1, trending down Ultrasound abdomen showing liver 15.8 cm in length with the increased echogenicity suggesting steatosis Hepatitis panel shows positive hep B antibody and hep C antibody RIP due to VMN - resolved Creatinine 1.63 on arrival, now 1.0 Ruled out DVT Lower extremity Doppler unremarkable Electrolyte derangements-Moderate hypokalemia and hypomagnesemia Replaced Vitamin-D deficiency Replaced Diet Soft mechanical GERD prophylaxis Pantoprazole 40 mg IV switched to oral DVT prophylaxis SCDs Plan discussed with patient, uncle, father, at bedside in which all questions have been answered Case discussed with Dr. Ramires. Infectious disease consultation pending. Stool culture - Campylobacter antigen detected Plan discussed with: Patient, Other (Father and uncle at bedside) My Orders My Orders Orders - KI FLANAGAN Procedure Category Date Status Time Mechanical Soft Diet DIET 04/12/24 Transmitted Dinner Addendum Addendum Addendum I was physically present for the garcia portions of the service provided to patient by THE RESIDENT. I have reviewed the documentation, discussed the case with resident and agree with the resident's documentation except as noted. Also the patient's clinical case was discussed with the patient's nurse. This medical document was created using an electronic medical record system with computerized dictation system. Although this document has been carefully reviewed, there might still be some phonetic and typographical errors. These areas are purely typographical due to imperfections of the software programs, and do not reflect any compromise in the patient's medical care. Late signature. Date of Service: Apr 13, 2024 Billing Provider: SCARLETT RAMIRES MD Common Visit Codes: [id number] INP/OBS CARE(HIGH) KI FLANAGAN Apr 13, 2024 14:31 SCARLETT RAMIRES MD Apr 14, 2024 04:56
[2024-04-13] MEDS: ERGOCALCIFEROL 50,000 UNIT(1.25MG) CAP PO SCH (15:58)
--- NOTE | 2024-04-13 18:36 | DVHINCON2 ---
Allergies: Coded Allergies: NO KNOWN ALLERGIES (Unverified , 04/10/24) Current Medications Current Medications Medications (Trade) Dose Ordered Sig/Jese Route PRN Reason Start Time Stop Time Status Last Admin Vancomycin HCl 200 ml @ 200 mls/hr Q10H IV 04/13/24 10:00 04/13/24 10:26 Pantoprazole Sodium (Protonix Tablet) 40 mg DAILY@0600 PO 04/14/24 06:00 Ergocalciferol (Vitamin D 50,000 Unit) 50,000 unit Q7D PO 04/13/24 14:45 04/13/24 15:58 Vital Signs Vital Signs Date Time Temp Pulse Resp B/P (MAP) Pulse Ox O2 Delivery O2 Flow Rate FiO2 04/13/24 16:00 98.8 108 21 116/77 (90) 94 98.8 04/13/24 07:57 Nasal Cannula* 2 28 Labs/Diagnostic Data Labs Test 04/13/24 05:00 04/12/24 21:55 04/12/24 13:47 04/12/24 11:00 Range/Units White Blood Count 10.3 # 4.4-10.8 10^3/uL Red Blood Count 4.55 4.5-5.90 10^6/uL Hemoglobin 13.1 L 13.5-17.5 g/dL Hematocrit 38.1 L 41.0-53.0 % Mean Corpuscular Volume 83.7 80.0-100.0 fL Mean Corpuscular Hemoglobin 28.9 28.0-32.0 pg Mean Corpuscular Hemoglobin Concent 34.5 32.0-36.0 g/dL Red Cell Distribution Width 13.3 11.8-14.3 % Platelet Count 258 140-450 10^3/uL Mean Platelet Volume 8.1 6.9-10.8 fL Neutrophils (%) (Auto) 37.0-80.0 % Lymphocytes (%) (Auto) 10.0-50.0 % Monocytes (%) (Auto) 0.0-12.0 % Basophils (%) (Auto) 0.0-2.0 % Neutrophils # (Auto) 1.6-8.6 10 ^3/uL Lymphocytes # (Auto) 0.4-5.4 10 ^3/uL Monocytes # (Auto) 0-1.3 10 ^3/uL Differential Total Cells Counted 100.0 100 Neutrophils % (Manual) 70 37.0-80.0 Band Neutrophils % (Manual) 3 Lymphocytes % (Manual) 11 10.0-50.0 Monocytes % (Manual) 7 0-12 Eosinophils % (Manual) 8 H 0-7 Basophils % (Manual) 0 0.0-2.0 Metamyelocytes % (manual) 1 Myelocytes % (Manual) 0 Promyelocytes % (Manual) 0 Blast Cells % (Manual) 0 Reactive Lymphocytes 0 Platelet Estimate Adequate Sodium Level 139 136-145 mmol/L Potassium Level 3.6 3.5-5.1 mmol/L Chloride Level 109 H 98-107 mmol/L Carbon Dioxide Level 22 20-31 mmol/L Anion Gap 8 5-15 Blood Urea Nitrogen 9 9-23 mg/dL Creatinine 0.95 0.700-1.30 mg/dL Glomerular Filtration Rate Calc 107 >90 mL/min BUN/Creatinine Ratio 9.5 L 10.0-20.0 Serum Glucose 96 74-106 mg/dL Calcium Level 8.6 L 8.7-10.4 mg/dL Total Bilirubin 0.9 0.2-1.0 mg/dL Direct Bilirubin 0.5 H <0.3 mg/dL Aspartate Amino Transferase (AST) 56 H 13-40 U/L Alanine Aminotransferase (ALT) 142 H 7-40 U/L Alkaline Phosphatase 119 H 46-116 U/L Total Protein 6.4 5.7-8.2 g/dL Albumin 3.5 3.2-4.8 g/dL Vancomycin Level Trough 4.0 L 5-10 ug/mL Plasma/Serum Blood Alcohol < 3.0 <10 mg/dL Stool for White Cells None seen Urine Opiates Screen Neg NEGATIVE Urine Fentanyl Screen Neg NEGATIVE Urine Barbiturates Screen Neg NEGATIVE Urine Phencyclidine Screen Neg NEGATIVE Urine Amphetamines Screen Neg NEGATIVE Urine Benzodiazepines Screen Neg NEGATIVE Urine Cocaine Screen Neg NEGATIVE Urine Cannabinoids Screen Neg NEGATIVE Test 04/12/24 09:26 04/12/24 05:06 04/11/24 18:03 04/11/24 16:04 Range/Units Stool Occult Blood Negative Negative Stool Occult Blood Sample #3 Negative Eosinophils (%) (Auto) 4.5 0.0-7.0 % Eosinophils # (Auto) 0.7 0-0.8 10 ^3/uL Basophils # (Auto) 0 0-0.2 10 ^3/uL Nucleated Red Blood Cells 0.0 % Magnesium Level 1.9 1.6-2.6 mg/dL B-Type Natriuretic Peptide 97.15 0-100 pg/mL HIV (1&2) Antibody Negative Negative Lactic Acid Level 1.3 0.4-2.0 mmol/L Hepatitis A IgM Antibody Negative Hepatitis A Antibody Total Positive H Negative Hepatitis B Surface Antigen Negative Negative Hepatitis B Surface Antibody Positive H Negative Hepatitis B Core Total Antibody Negative Negative Hepatitis B Core IgM Antibody Negative Hepatitis C Antibody Negative Negative Test 04/11/24 09:27 04/11/24 03:22 04/10/24 12:38 04/10/24 11:24 Range/Units Haptoglobin 232 17-317 mg/dL Prothrombin Time 11.9 H 9.3-11.8 sec Prothrombin Time INR 1.13 0.9-1.15 Activated Partial Thromboplast Time 28.6 24.5-34.5 SEC Reticulocyte Count (auto) 1.56 H 0.5-1.5 % Hemoglobin A1c < 3.8 <5.7 % A1C Phosphorus Level 1.6 L 2.4-5.1 mg/dL Lactate Dehydrogenase 294 H 120-246 U/L Vitamin B12 Level 425 211-911 pg/mL Vitamin D 25-Hydroxy 20.0 L 30.0-100 ng/mL Thyroid Stimulating Hormone (TSH) 1.55 0.55-4.78 uIU/mL Random Vancomycin Level 16.7 H 5-10 ug/mL Urine Color Yellow Yellow Urine Clarity Clear Clear Urine pH 5.5 5.0-9.0 Urine Specific Tyner 1.022 1.001-1.035 Urine Protein 1+ H Negative Urine Ketones Negative Negative Urine Blood Trace H Negative /uL Urine Nitrite Negative Negative Urine Bilirubin Negative Negative Urine Urobilinogen Normal Negative mg/dL Urine Leukocyte Esterase Negative Negative /uL Urine RBC 2 0 - 3 /hpf Urine WBC 9 0 - 3 /hpf Urine Squamous Epithelial Cells None seen <5 /hpf Urine Bacteria None seen None Seen /hpf Urine Hyaline Casts Few 0 - 2 /lpf Urine Glucose Normal Normal mg/dL Influenza Type A Antigen Negative Negative Influenza Type B Antigen Negative Negative SARS-CoV-2 Antigen (Rapid) Negative NEGATIVE Group A Streptococcus Rapid Positive Test 04/10/24 11:03 Range/Units Lipase 28 12-53 U/L Microbiology Date/Time Source Procedure Growth Status 04/12/24 11:00 Stool Stool Culture - Preliminary Resulted 04/12/24 11:00 Stool Shiga Toxin I & II - Final Resulted 04/12/24 11:00 Stool Clostridium difficile Toxin Assay Pending Resulted 04/11/24 13:32 Nose MRSA Screen - Final Complete 04/10/24 11:03 Blood Blood Culture - Preliminary NO GROWTH AFTER 72 HOURS OF INCUBATION. Resulted DARNELL SWEET MD Apr 13, 2024 18:36
[2024-04-14] VITALS (20 sets, daily range): BP systolic 95–119; BP diastolic 45–77; PULSE 60–102; RESP 17–28; TEMP 98–100; O2SAT 91–96
[2024-04-14 05:17] LABS: Hematocrit 39.5 % (41.0-53.0); Hemoglobin 13.7 g/dL (13.5-17.5); Mean Corpuscular Hemoglobin 28.5 pg (28.0-32.0); Mean Corpuscular Hgb Conc. 34.6 g/dL (32.0-36.0); Mean Corpuscular Volume 82.3 fL (80.0-100.0); Platelet Count (auto) 310 10^3/uL (140-450); Red Cell Distribution Width 13.6 % (11.8-14.3); White Blood Cell 10.8 10^3/uL (4.4-10.8)
[2024-04-14 05:21] LABS: Chloride 107 mmol/L (98-107); Potassium 3.6 mmol/L (3.5-5.1); Sodium 136 mmol/L (136-145)
[2024-04-14 05:22] LABS: Anion Gap 7 (5-15); Calcium 8.7 mg/dL (8.7-10.4); Carbon Dioxide 22 mmol/L (20-31)
[2024-04-14 05:27] LABS: BUN/Creatinine Ratio 11.2 (10.0-20.0); Blood Urea Nitrogen 12 mg/dL (9-23); Glucose 109 mg/dL (74-106)
[2024-04-14 05:30] LABS: Basophils % (manual) 0 (0.0-2.0); Blast Cells 0; Metamyelocytes % 0; Monocytes % (manual) 0 (0-12); Promyelocytes % 0; Reactive Lymphocytes 0
[2024-04-14] MEDS: PANTOPRAZOLE 40 MG TAB PO SCH (05:45)
[2024-04-14 06:13] LABS: Band Neutrophils % (manual) 1; Eosinophils % (manual) 11 (0-7); Lymphocytes % (manual) 22 (10.0-50.0); Myelocytes % 4
[2024-04-14 06:14] LABS: Platelet Estimate Adequate; Rouleau EA
[2024-04-14] MEDS: MAGNESIUM OXIDE 400 MG TAB PO ONE (07:15)
[2024-04-14] MEDS: POTASSIUM EFFERVESENT TAB 25 MEQ PO ONE (07:15)
--- NOTE | 2024-04-14 10:36 | DVHPN2 ---
Progress Note - Dictate Date Seen: Apr 14, 2024 Medical Necessity Reason Pt with a Central, PICC or Fol: No Subjective Mr. Dwight Engel is a 34 years old right-handed gentleman otherwise healthy, he came to the hospital on 04/10/2024 with a chief company of chills, fever, nausea, vomiting, and abdominal pain I have seen and examined the patient, I have discussed with his nurse, his in the room with him, he was doing fine, alert and fully oriented, no new complaints I have appreciated Dr. Tavarez input Group A strep rapid, 03/10/2024: Positive Hepatitis panel, 04/30/2024: Hepatitis-A antibody, HGB Ab HIV one and two antibody, 04/12/2024: Negative UDS, 04/12/2024: Negative Plasma alcohol, 04/12/2024: Three WBC/HB/PLT/MCV, 04/10/2024: 20.7/15.6/242/81.9, 04/12/2024: 14.6/12.7/225/83.8, 04/13/2024: 10.3/13.1/258/83.7 BMP, 04/12/2023: Unremarkable Lactic Acid, 04/10/2024: 2.4, 2.3, 04/11/2024: 2, 2.3 TBI/AST/ALT/AP, 04/12/2024:1.6/80/168/102 Vitamin B12, 04/11/24: 425 TSH, 04/11/2024: 1.55 Echocardiogram, 03/12/2024: Normal left ventricular size and dimension. Normal left ventricular systolic function estimated ejection fraction 55%. Normal diastolic function. Normal right ventricular size and dimension. Normal right ventricular systolic function. Normal biatrial size and dimension. Normal aortic valve structure and function. Normal mitral valve structure function. Normal tricuspid valve structure and function. The pulmonary valve is grossly normal. No pericardial effusion. Ultrasound, abdomen, 04/10/2024: Liver measures 15.8 cm in length with increased echogenicity of the hepatic parenchyma suggesting steatosis Chest x-ray, 04/10/2024: Bronchovascular crowding due to low lung volumes. Otherwise, no evidence for acute cardiopulmonary disease CT head, 04/11/2024: No evidence of acute intracranial abnormality. Mild pansinus disease CT, abdomen pelvis, 04/10/2024: 1. Fat stranding in the left hemipelvis, extending into the left groin. Findings are suspicious for infectious or inflammatory etiology but the source is unclear. Adjacent colon appears to be unaffected . Additionally, there is left inguinal lymphadenopathy, which may be reactive. Consider left lower extremity venous doppler ultrasound to exclude thrombus. 2. Mild diffuse wall thickening of the entire colon which may represent colitis vital signs Vital Sign Date Time Temp Pulse Resp B/P (MAP) Pulse Ox O2 Delivery O2 Flow Rate FiO2 04/14/24 09:00 84 21 116/77 (90) 95 04/14/24 08:00 99.0 99.0 04/14/24 07:56 Room Air* 0 21 Total Intake and Output 04/13/24 04/13/24 04/14/24 15:00 23:00 07:00 Intake Total 350 ml 1300 ml 825 ml Output Total 3000 ml 900 ml Balance 350 ml -1700 ml -75 ml medications Current Medications Medications Dose Ordered Sig/Jese Route Start Time Stop Time Status Last Admin Dose Admin Ondansetron HCl 4 mg Q4HP PRN IV 04/10/24 16:15 Docusate Sodium 100 mg BIDPRN PRN PO 04/10/24 16:15 Morphine Sulfate 2 mg Q4HPRN PRN IV 04/10/24 16:15 04/11/24 20:13 2 MG Vancomycin HCl 0 ml @ 0 mls/hr UD IV 04/10/24 18:00 Piperacillin Sod/ Tazobactam Sod 100 ml @ 25 mls/hr Q6HR IV 04/10/24 18:00 04/14/24 05:45 25 MLS/HR Ketorolac Tromethamine 30 mg Q8H PRN IV 04/12/24 06:45 04/17/24 06:44 Gabapentin 200 mg TID PO 04/12/24 06:45 04/14/24 05:45 200 MG Oxycodone HCl 5 mg Q8H PRN PO 04/12/24 06:45 Acetaminophen 1,000 mg Q8H PO 04/12/24 10:00 04/13/24 15:58 1,000 MG Vancomycin HCl 200 ml @ 200 mls/hr Q10H IV 04/13/24 10:00 04/14/24 05:45 200 MLS/HR Pantoprazole Sodium 40 mg DAILY@0600 PO 04/14/24 06:00 04/14/24 05:45 40 MG Ergocalciferol 50,000 unit Q7D PO 04/13/24 14:45 04/13/24 15:58 50,000 UNIT objective General: the patient is well developed and nourished. No acute distress. MUSCULOSKELETAL EXAM: No skin rashes MENTAL STATUS: Subjective SPEECH, LANGUAGE, HIGHER CORTICAL FUNCTION: no aphasia or dysathria. CRANIAL NERVES: Pupils are equal, round and reactive. EOMs full and conjugate. No nystagmus. Facial sensation intact in all three divisions bilaterally. Mandibular strength intact. Facial muscles symmetrical and strength intact. SENSATION: Sensation to touch and pinprick is normal. MOTOR: Normal tone in the upper and lower extremity. Normal muscle bulk. No fasciculations. No abnormal movements or posturing. Muscle strength of the major groups in the extremities is 5/5. REFLEXES: Deep tendon reflexes normal and symmetrical. No pathological reflexes. CEREBELLAR/COORDINATION: Finger to nose and heel to hong are normal bilaterally. GAIT/STATION: deferred. laboratory and microbiology Laboratory Tests 04/14/24 04:49 Test 04/14/24 04:49 Range/Units Serum Glucose 109 H 74-106 mg/dL Problem List Acute headache, along with chills, fever, GI symptoms, like the patient has infection, Rule out meningitis/aseptic meningitis, less likely Assessment/Plan Monitoring Supportive treatment Bed search Blood culture Follow-up labs IV antibiotics GI prophylaxis ID specialist on case This medical document was created using an electronic medical record system with [employer] dictation system. Although this document has been carefully reviewed, there may still be some phonetic and typographical errors. These areas are purely typographical due to imperfections of the software programs, and do not reflect any compromise in the patient's medical care. Dietary Evaluation Review Comments: Continue current plan of care Expected Outcomes/Goals: F/U in 3-5 days Plan discussed with: Patient, Spouse, Other MOI BOLANOS MD Apr 14, 2024 10:36
--- NOTE | 2024-04-14 14:53 | DVHDSRES ---
Discharge Summary Date of Admission Resident Creating Document: KI FLANAGAN RESIDENT Apr 10, 2024 at 15:25 Date of Discharge: Apr 14, 2024 Admitting Diagnosis Diffuse generalized weakness and abdominal pain Labs/Diagnostic Data: Laboratory Results Test 04/14/24 04:49 04/13/24 05:00 04/12/24 21:55 04/12/24 13:47 White Blood Count 10.8 10^3/uL (4.4-10.8) Red Blood Count 4.80 10^6/uL (4.5-5.90) Hemoglobin 13.7 g/dL (13.5-17.5) Hematocrit 39.5 % (41.0-53.0) Mean Corpuscular Volume 82.3 fL (80.0-100.0) Mean Corpuscular Hemoglobin 28.5 pg (28.0-32.0) Mean Corpuscular Hemoglobin Concent 34.6 g/dL (32.0-36.0) Red Cell Distribution Width 13.6 % (11.8-14.3) Platelet Count 310 10^3/uL (140-450) Mean Platelet Volume 7.6 fL (6.9-10.8) Neutrophils (%) (Auto) % (37.0-80.0) Lymphocytes (%) (Auto) % (10.0-50.0) Monocytes (%) (Auto) % (0.0-12.0) Basophils (%) (Auto) % (0.0-2.0) Neutrophils # (Auto) 10 ^3/uL (1.6-8.6) Lymphocytes # (Auto) 10 ^3/uL (0.4-5.4) Monocytes # (Auto) 10 ^3/uL (0-1.3) Differential Total Cells Counted 85.0 (100) Neutrophils % (Manual) 47 (37.0-80.0) Band Neutrophils % (Manual) 1 Lymphocytes % (Manual) 22 (10.0-50.0) Monocytes % (Manual) 0 (0-12) Eosinophils % (Manual) 11 (0-7) Basophils % (Manual) 0 (0.0-2.0) Metamyelocytes % (manual) 0 Myelocytes % (Manual) 4 Promyelocytes % (Manual) 0 Blast Cells % (Manual) 0 Reactive Lymphocytes 0 Platelet Estimate Adequate Rouleaux Ea Sodium Level 136 mmol/L (136-145) Potassium Level 3.6 mmol/L (3.5-5.1) Chloride Level 107 mmol/L (98-107) Carbon Dioxide Level 22 mmol/L (20-31) Anion Gap 7 (5-15) Blood Urea Nitrogen 12 mg/dL (9-23) Creatinine 1.07 mg/dL (0.700-1.30) Glomerular Filtration Rate Calc 93 mL/min (>90) BUN/Creatinine Ratio 11.2 (10.0-20.0) Serum Glucose 109 mg/dL (74-106) Calcium Level 8.7 mg/dL (8.7-10.4) Total Bilirubin 0.9 mg/dL (0.2-1.0) Direct Bilirubin 0.5 mg/dL (<0.3) Aspartate Amino Transferase (AST) 56 U/L (13-40) Alanine Aminotransferase (ALT) 142 U/L (7-40) Alkaline Phosphatase 119 U/L (46-116) Total Protein 6.4 g/dL (5.7-8.2) Albumin 3.5 g/dL (3.2-4.8) Vancomycin Level Trough 4.0 ug/mL (5-10) Plasma/Serum Blood Alcohol < 3.0 mg/dL (<10) Test 04/12/24 11:00 04/12/24 09:26 04/12/24 05:06 04/11/24 18:03 Stool for White Cells None seen Urine Opiates Screen Neg (NEGATIVE) Urine Fentanyl Screen Neg (NEGATIVE) Urine Barbiturates Screen Neg (NEGATIVE) Urine Phencyclidine Screen Neg (NEGATIVE) Urine Amphetamines Screen Neg (NEGATIVE) Urine Benzodiazepines Screen Neg (NEGATIVE) Urine Cocaine Screen Neg (NEGATIVE) Urine Cannabinoids Screen Neg (NEGATIVE) Stool Occult Blood Negative (Negative) Stool Occult Blood Sample #3 (Negative) Eosinophils (%) (Auto) 4.5 % (0.0-7.0) Eosinophils # (Auto) 0.7 10 ^3/uL (0-0.8) Basophils # (Auto) 0 10 ^3/uL (0-0.2) Nucleated Red Blood Cells 0.0 % Magnesium Level 1.9 mg/dL (1.6-2.6) B-Type Natriuretic Peptide 97.15 pg/mL (0-100) HIV (1&2) Antibody Negative (Negative) Lactic Acid Level 1.3 mmol/L (0.4-2.0) Test 04/11/24 16:04 04/11/24 09:27 04/11/24 03:22 04/10/24 12:38 Hepatitis A IgM Antibody Negative Hepatitis A Antibody Total Positive (Negative) Hepatitis B Surface Antigen Negative (Negative) Hepatitis B Surface Antibody Positive (Negative) Hepatitis B Core Total Antibody Negative (Negative) Hepatitis B Core IgM Antibody Negative Hepatitis C Antibody Negative (Negative) Haptoglobin 232 mg/dL (17-317) Prothrombin Time 11.9 sec (9.3-11.8) Prothrombin Time INR 1.13 (0.9-1.15) Activated Partial Thromboplast Time 28.6 SEC (24.5-34.5) Reticulocyte Count (auto) 1.56 % (0.5-1.5) Hemoglobin A1c < 3.8 % A1C (<5.7) Phosphorus Level 1.6 mg/dL (2.4-5.1) Lactate Dehydrogenase 294 U/L (120-246) Vitamin B12 Level 425 pg/mL (211-911) Vitamin D 25-Hydroxy 20.0 ng/mL (30.0-100) Thyroid Stimulating Hormone (TSH) 1.55 uIU/mL (0.55-4.78) Random Vancomycin Level 16.7 ug/mL (5-10) Urine Color Yellow (Yellow) Urine Clarity Clear (Clear) Urine pH 5.5 (5.0-9.0) Urine Specific [place] 1.022 (1.001-1.035) Urine Protein 1+ (Negative) Urine Ketones Negative (Negative) Urine Blood Trace /uL (Negative) Urine Nitrite Negative (Negative) Urine Bilirubin Negative (Negative) Urine Urobilinogen Normal mg/dL (Negative) Urine Leukocyte Esterase Negative /uL (Negative) Urine RBC 2 /hpf (0 - 3) Urine WBC 9 /hpf (0 - 3) Urine Squamous Epithelial Cells None seen /hpf (<5) Urine Bacteria None seen /hpf (None Seen) Urine Hyaline Casts Few /lpf (0 - 2) Urine Glucose Normal mg/dL (Normal) Test 04/10/24 11:24 04/10/24 11:03 Influenza Type A Antigen Negative (Negative) Influenza Type B Antigen Negative (Negative) SARS-CoV-2 Antigen (Rapid) Negative (NEGATIVE) Group A Streptococcus Rapid Positive Lipase 28 U/L (12-53) Other Laboratory Tests 04/14/24 04:49 Brief Hx & Hospital Course: Santhosh Escobar is a 34-year-old male patient with no PMH/PSH who presented to the ER with a chief complaint of generalized body ache and weakness starting 04/08. Patient reports generalized body pain and fever associated with chills starting the night of 04/08. The next day he reports he was nauseous and feeling dizzy and therefore he went to the urgent care where his temperature was 102 F therefore he was sent to the ER. He reports extreme thirst, and a diffuse bandlike headache. Patient experienced abdominal pain and 2 episodes of vomiting since he has been in the hospital, says that the vomiting was pinkish later. Denies sore throat/a sick contacts/any travel history/shortness of breath or cough. Allergic history: No known allergies During the hospital stay, rapid strep antigen was positive and a CT scan abdomen completed which showed Mild diffuse wall thickening of the entire colon which may represent colitis.Fat stranding in the left hemipelvis, extending into the left groin. Stool was sent for WBCs/culture. Patient was started on IV vancomycin and IV Zosyn starting 04/10. Given that he could not tolerate any fluids, he received IV fluids per sepsis protocol initially. Lactic acid was elevated at 2.3 which downtrended to 1.3. Patient had diffuse headache for which Neurology was consulted and a CT head was completed which showed no acute pathology. Infectious Disease was also consulted and patient was taken off isolation protocols, given the low likelihood of meningitis. Prelim blood cultures were negative. Stool culture showed Campylobacter antigen. White blood cell count started to trend down from 22 to 10. HIV testing was negative. An echocardiogram was completed which showed normal LV size and dimension. Normal LV SF, normal LVEF at 55%. Normal diastolic function. Normal structural heart. No pericardial effusion. Patient also had transaminitis AST> ALT, AST/ALT ratio less than 1, trending down. Ultrasound abdomen showing liver 15.8 cm in length with the increased echogenicity suggesting steatosis. Hepatitis panel shows positive hep B antibody and hep C antibody. Father/ were always updated at bedside. Lab workup also showed RIP, creatinine was 1.63 which downtrended to 1.0 with IV fluids. 04/14/2024 - patient is afebrile for the past 48 hours, tolerating soft mechanical diet well, nausea/vomiting/abdominal pain has resolved, reports no active complaint and is therefore being discharged home with azithromycin 500 mg orally for the next 3 days and recommendations to follow with discharge clinic appointment within 7 days and follow up with his primary care physician within 7-14 days. Examination Young male patient lying in bed, in no acute distress General: Overweight, low-grade fever, palor, mucosae are moist. Oropharyngeal examination shows resolving white exudates on tongue, erythematous oropharynx, tonsils can not be visualized due to extreme gag reflux. Cardiovascular: Tachycardia but Regular S1 and S2. No murmurs, gallops or rubs. No JVD elevation. Resolving Pitting edema in the lower extremities. Respiratory: Normal B/L air entry on room air. Clear lung sounds on auscultation Abdomen: Soft, resolving suprapubic tenderness, nondistended, normoactive bowel sounds, no rebound tenderness, no organomegaly, no masses Genitourinary: Deferred MSK/skin: Mobilizes 4 limbs. Skin is dry and warm. Lower extremity pitting edema. Neurological: No motor, no sensitive deficits, normal speech. Pupils are isocoric and reactive. Negative Kernig/Brudzinski sign Psych/Mental Status: A/Ox4 Consults/Reason for consult Neurology consulted for persistent headache, infectious disease consulted. Operations or Procedures ORDERING PHYSICIAN: ANI DANIEL DO PROCEDURE(s): HWOCT - HEAD WITHOUT CONTRAST REASON: PERSISTENT BAILEY ORDER NUMBER(s): [id number], ACCESSION NUMBER(s): [id number] Procedure: CT HEAD WITHOUT CONTRAST Study Date and Requested Time: 04/11/2024 09:20 PM History: PERSISTENT BAILEY Comparison: None Dose: CTDI: 60.07 mGy DLP: 962.39 mGycm Technique: Multiplanar images obtained through the brain without intravenous contrast. Findings: Normal brain volume and formation. No hemorrhages, masses, mass effect, midline shift, herniation or cytotoxic edema following a large vascular territory. No intra-axial or extra-axial fluid collections. No evidence of hydrocephalus. The basal cisterns are patent. The pituitary gland, sella and parasellar regions are unremarkable. The cerebellar tonsils are in normal position. The cerebellum is unremarkable. The orbits and globes are unremarkable. There is mild pansinus mucoperiosteal thickening. The mastoids are clear. There are no worrisome calvarial lesions. 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 Impression: No evidence of acute intracranial abnormality. Mild pansinus disease. ATED BY: REVA FIGUEROA DO DICTATED DATE/TIME: 04/11/242152 SIGNED BY: REVA FIGUEROA DO SIGNED DATE/TIME: 04/11/242152 CC: ORDERING PHYSICIAN: EZRA JEAN BAPTISTE DNP PROCEDURE(s): ABDL - ABDOMEN LIMITED REASON: acute transaminitis ORDER NUMBER(s): [id number], ACCESSION NUMBER(s): [id number] INDICATION: Pain. TECHNIQUE: Multiple real-time sonographic images of the abdomen were obtained. COMPARISON: None FINDINGS: The liver demonstrates increased parenchymal echogenicity consistent with steatosis.. The liver measures 15.8 cm. No intrahepatic biliary ductal dilatation is noted. The gallbladder wall measures 0.27 cm and is unremarkable. No gallstones or sludge is seen. The common duct measures 0.38 cm and is unremarkable. No pericholecystic fluid is noted. Negative ultrasound Abel's sign is elicited. The right kidney measures 10.7 cm. No hydronephrosis. The pancreas is not well visualized due to obscuration from bowel gas. IMPRESSION: 1. Liver measures 15.8 cm in length with increased echogenicity of the hepatic parenchyma suggesting steatosis. ATED BY: JOSE MIGUEL MOCTEZUMA Jr., DO DICTATED DATE/TIME: 04/10/241703 SIGNED BY: JOSE MIGUEL MOCTEZUMA Jr., SIGNED DATE/TIME: 04/10/241703 CC: ORDERING PHYSICIAN: BELÉN UMANA MD PROCEDURE(s): CXR2 - CHEST TWO VIEWS ROUTINE REASON: High fever ORDER NUMBER(s): [id number], ACCESSION NUMBER(s): [id number] CHEST TWO VIEWS ROUTINE CLINICAL HISTORY: High fever COMPARISON: None TECHNIQUE: Frontal and lateral view of the chest was obtained FINDINGS: Lines and Tubes: None Lungs: No focal consolidation. Bronchovascular crowding due to low lung volumes. Pleura: No effusion. No pneumothorax. Cardiomediastinal contours: Unremarkable Bones: No acute osseous abnormality. IMPRESSION: Bronchovascular crowding due to low lung volumes. Otherwise, no evidence for acute cardiopulmonary disease. ATED BY: REVA FIGUEROA DO DICTATED DATE/TIME: 04/10/24 1350 SIGNED BY: REVA FIGUEROA DO SIGNED DATE/TIME: 04/10/24 1350 CC: ORDERING PHYSICIAN: BELÉN UMANA MD PROCEDURE(s): ABPLIV - CT AB PEL WITH IV CON ONLY REASON: Abdominal pain and high fever with nausea vomiting and diarr ORDER NUMBER(s): [id number], ACCESSION NUMBER(s): [id number] Exam: CT CT AB PEL WITH IV CON ONLY History: Abdominal pain and high fever with nausea vomiting and diarr Comparison Study: None available at time of dictation. Contrast: Type of contrast: Not submitted Contrast injected: Not submitted Contrast wasted: 0 TECHNIQUE: A digital pie crimping machine operator image was obtained. During the uneventful, intravenous administration of contrast material, multislice data acquisition was obtained through the abdomen and pelvis. The data set was subsequently reconstructed into axial images. Images were reviewed on a work station using a combination of axial and multiplanar using a variety of window levels and settings. Radiation Dose Information: CT Dose: CTDI volume is 10.68 mGy. Dose-length product is 515.95 mGy*cm FINDINGS: Lung Bases: No acute or significant lung base finding. Normal heart size. No pleural or pericardial effusion. Liver: The liver is normal in size. No focal lesions. Normal hepatic vascular enhancement. Gallbladder and Biliary Tree: Punctate gallstones. No biliary ductal dilatation. Spleen: The spleen is unremarkable. Pancreas: The pancreas is normal in appearance without focal lesions or abnormal enhancement. Adrenal Glands: Unremarkable Kidneys: Kidneys demonstrate normal symmetric enhancement without focal lesions, calculi or hydronephrosis. Bladder: Unremarkable Bowel: The stomach is grossly normal in appearance. Small bowel is normal in caliber. Diffuse wall thickening of the ascending colon, descending and sigmoid colon. Normal appendix. Intraperitoneal cavity: There is no fluid collection. There is moderate fat stranding in the left hemipelvis extending into the left groin. No fluid collection. Lymphadenopathy: Increased number of left inguinal lymph nodes which are enlarged. Abdominal Wall and Mesentery: Unremarkable. Vasculature: The visualized abdominal aorta is normal in size and caliber. Abdominal and pelvic vessels demonstrate normal enhancement. No vascular filling defect noted. Pelvic Organs: Enlarged prostate. Musculoskeletal: No aggressive focal bony lesions, acute fractures or dislocation. Soft tissues: Unremarkable. IMPRESSION: 1. Fat stranding in the left hemipelvis, extending into the left groin. Findings are suspicious for infectious or inflammatory etiology but the source is unclear. Adjacent colon appears to be unaffected . Additionally, there is left inguinal lymphadenopathy, which may be reactive. Consider left lower extremity venous doppler ultrasound to exclude thrombus. 2. Mild diffuse wall thickening of the entire colon which may represent colitis. All CT scans at this medical facility are performed using dose modulation techniques as appropriate to a performed exam including the following: Automated exposure control was utilized; adjustment of the MA and/or KV according to patient size; and use of iterative reconstruction technique. ATED BY: JAZZ HARTMAN MD DICTATED DATE/TIME: 04/10/24 130 SIGNED BY: JAZZ HARTMAN MD SIGNED DATE/TIME: 04/10/24 130 ORDERING PHYSICIAN: BELÉN UMANA MD PROCEDURE(s): LLDVT - LT Lower DVT REASON: LLE PAIN/ SWELLING ORDER NUMBER(s): [id number], ACCESSION NUMBER(s): [id number] Procedure: US LT Lower DVT Study Date and Requested Time: 04/10/2024 03:25 PM History: LLE PAIN/ SWELLING Comparison: None Technique: Multiple high resolution stovall-scale images with and without compression obtained of the left lower extremity veins, including the common femoral vein, deep femoral vein, proximal mid and distal superficial femoral vein, and popliteal vein. Additional limited images of the greater saphenous vein also obtained. Augmentation performed as indicated. Color and spectral doppler flow images obtained as indicated. Findings: No visible intraluminal venous thrombus. No evidence of incompressibility or abnormal color or spectral Doppler flow visualized in the left lower extremity veins including, the common femoral vein, deep femoral vein, proximal mid and distal superficial femoral vein, and popliteal vein. Greater saphenous vein grossly unremarkable. Subcentimeter left inguinal lymph node measuring up to 0.7 cm. Impression: No sonographic evidence of left lower extremity deep venous thrombosis. ATED BY: REVA FIGUEROA DO DICTATED DATE/TIME: 04/10/24 154 SIGNED BY: REVA FIGUEROA DO SIGNED DATE/TIME: 04/10/241546 CC: Condition at Discharge: Stable Final Diagnosis/Problems List Sepsis secondary to Campylobacter acute colitis versus streptococcal pharyngitis Severe Persistent Headache with intractable nausea and vomiting - resolved Group a streptococcal pharyngitis Abdominal pain and diarrhea secondary to Diffuse colitis Lactic acidosis-resolved Leukocytosis-resolved Ruled out HIV Ruled out infective endocarditis at this time Normocytic anemia Ruled out meningitis/aseptic meningitis head this time Transaminitis secondary to steatosis-resolving RIP due to VMN resolved Ruled out DVT Electrolyte derangements-Moderate hypokalemia and hypomagnesemia Vitamin-D deficiency Discharge Disposition: Home Discharge Instruct/Medications Diet: See Comment Diet comment: Soft mechanical diet, advance as tolerated Activity: Light activity Follow Up/Referral: Follow up with the discharge clinic appointment within 7-14 days Follow up with primary care physician within 7-14 days Medications: Azithromycin 500 mg for the next 3 day Discharge Statement: "Patient was advised to return to the ER or call 911 if any headaches, dizziness, shortness of breath, chest pain, abdominal pain, bleeding, fevers, or worsening of medical condition. Patient was counseled about treatment plan, medications, possible side effects, patientverbalized understanding. All questions were answered to the best of my ability. This discharge took greater then 30 minutes in planning, reviewing documentation, counseling the patient, and discussing with other team members." ASSESSMENT ASSESSMENT Assessment Sepsis secondary to Campylobacter acute colitis versus streptococcal pharyngitis Group a streptococcal pharyngitis Abdominal pain and diarrhea secondary to Diffuse colitis Lactic acidosis-resolved Leukocytosis-resolved KI FLANAGAN RESIDENT Apr 14, 2024 14:53
[2024-04-14] MEDS ORDERED: AZIT500T66 PO (16:05)
== END 2024-04-14 18:40 | disposition home or self-care (01) | DRG 872 ==
LOC: ER 09:57 → TELE 15:25 → DOU IN ICU 17:26
PROVIDERS: ADMIT Student in an Organized Health Care Education/Training Program; ATTEND Student in an Organized Health Care Education/Training Program
DX: A40.9 Streptococcal sepsis, unspecified (principal); N17.9 Acute kidney failure, unspecified; A04.5 Campylobacter enteritis; E83.42 Hypomagnesemia; Z20.822 Contact with and (suspected) exposure to COVID-19; E86.0 Dehydration; J02.0 Streptococcal pharyngitis; E87.6 Hypokalemia; E11.21 Type 2 diabetes mellitus with diabetic nephropathy; K76.0 Fatty (change of) liver, not elsewhere classified; F17.200 Nicotine dependence, unspecified, uncomplicated; Z79.899 Other long term (current) drug therapy
CPT/HCPCS: 36415; 70450; 71046; 74177; 76705; 80048; 80053; 80074; 80076; 80202; 80307; 80320; 81001; 82270; 82306; 82607; 83010; 83036; 83605; 83615; 83690; 83735; 83880; 84100; 84443; 85007; 85025; 85027; 85045; 85048; 85610; 85730; 86703; 86704; 86706; 86708; 86803; 87040; 87045; 87081; 87340; 87426; 87427; 87493; 87804; 87880; 93005; 93306; 93971; 96374; 99291; G0378; J2003; J2405; J2470; J2543; J3480; J3490

== ENCOUNTER 2025-01-03 09:50 | Outpatient (CLI) | payer BC ==
[~2025-01-03 09:50] MED LIST: AZIT500T66 PO
[2025-01-03 11:01] LABS: Hematocrit 46.0 % (41.0-53.0); Hemoglobin 16.1 g/dL (13.5-17.5); Mean Corpuscular Hemoglobin 28.9 pg (28.0-32.0); Mean Corpuscular Volume 82.8 fL (80.0-100.0); Nucleated Red Blood Cells % 0.0 %
[2025-01-03 11:14] LABS: Alanine Aminotransferase 31 U/L (7-40); Albumin 4.7 g/dL (3.2-4.8); Alkaline Phosphatase 77 U/L (46-116); Anion Gap 7 (5-15); BUN/Creatinine Ratio 11.4 (10.0-20.0); Bilirubin, Total 0.6 mg/dL (0.2-1.0); Blood Urea Nitrogen 12 mg/dL (9-23); Calcium 9.8 mg/dL (8.7-10.4); Carbon Dioxide 28 mmol/L (20-31); Chloride 104 mmol/L (98-107); Glucose 93 mg/dL (74-106); HDL Cholesterol 46 mg/dL (40-59); Potassium 3.9 mmol/L (3.5-5.1); Sodium 139 mmol/L (136-145); Total Protein 7.3 g/dL (5.7-8.2)
[2025-01-03 11:16] LABS: Cholesterol 215 mg/dL (< 200); Triglycerides 156 mg/dL (< 150)
[2025-01-03 11:24] LABS: Urine Protein, UAD Negative (Negative)
== END 2025-01-03 17:00 | disposition home or self-care (01) ==
LOC: LAB 09:50
PROVIDERS: ATTEND Student in an Organized Health Care Education/Training Program
DX: R73.9 Hyperglycemia, unspecified (principal); R03.0 Elevated blood-pressure reading, without diagnosis of hypertension; Z00.00 Encounter for general adult medical examination without abnormal findings; Z79.899 Other long term (current) drug therapy
CPT/HCPCS: 36415; 80053; 80061; 81001; 83036; 84443; 85025